=== PATIENT | female | born 1970 | race Caucasian/White ===

== ENCOUNTER 2021-02-09 15:19 | Emergency (ER) | payer OTHER, SELFPAY ==
--- NOTE | ~2021-02-09 | XR_ITS ---
EXAMINATION: XR ankle LT min 3V DATE: 02/09/2021 15:54 INDICATION: Left ankle lateral pain. TECHNIQUE: 3 views of left ankle were obtained. COMPARISON: None. FINDINGS: Bone alignment is normal. No fracture. There is sclerosis of the talar dome. Joint spaces a re normal. There are enthesophytes at the posterior and plantar aspects of calcaneal tuberosity. Ther e is ankle soft tissue swelling. IMPRESSION: 1. Sclerosis of the talar dome suspicious for osteonecrosis. Reviewed, dictated and finalized at location A.
[2021-02-09 15:29] VITALS: BP 150/78; PULSE 74; RESP 20; TEMP 36.5; O2SAT 98
--- NOTE | 2021-02-09 16:41 | ED.LOWEXIN ---
HPI - Extremity Injury (Lower) General Chief Complaint: Extremity Injury, Lower Stated Complaint: LEFT FOOT PAIN Source: patient and RN notes reviewed Mode of arrival: ambulatory History of Present Illness HPI Narrative: This is a 50-year-old female that presented to urgent care with complaints of left ankle and foot pain. According to patient she has gotten believe that her swelling is due to her gout. She also notes that when she walks she often twisted her ankle when she walks. She also noted to me that when she is in bed her lower extremity becomes extremely cold. Her x-ray indicates suspicious osteonecrosis. Patient is being transferred over to [facility] for further testing spoke with . Patient agrees to transfer over to [place] for further testing. Related Data Home Medications Medication Instructions Recorded Confirmed albuterol sulfate 90 mcg/actuation 2 puff INHALATION Q4-6H PRN gm 05/25/19 09/22/20 aerosol inhaler Allergies Allergy/AdvReac Type Severity Reaction Status Date / Time No Known Allergies Verified 06/12/19 14:02 Review of Systems Review of Systems: A 14 organ system Review of Systems was performed and pertinent positives included in the HPI, otherwise remaining ROS is negative. [facility] Past Medical History Medical History (Updated 02/09/21 @ 16:41 by ALEXIA Mclean) Anxiety Daytime sleepiness Hypertension Lower extremity surgery planned Right lower extremity surgery for infected tattoo and skin graft 2011 Obesity Family History Family History (System 06/12/19 @ 14:02 by Sonya Culp) Mother Patient's mother is in good health Family history of cardiovascular disease Father Patient's father is in good health Sibling Diabetes mellitus Sibling Type 1 diabetes Social History Social History (Updated 07/31/19 @ 10:59 by Karina Wade, [facility]) Smoking packs per day: 1 Smoking cigarettes per day: 20.0 Smoking status: Former smoker Tobacco type: cigarettes Second hand tobacco smoke exposure: No Smoking end date: 04/27/08 Alcohol intake: never Alcohol use details: Pt drinks rarely. Substance use: never Last use: 04/24/19 Exam Narrative: GENERAL: This is a well-nourished, well-developed patient, in no apparent distress. HEAD: normocephalic, atraumatic. EYES: PERRL. Sclera clear/white. Vision is grossly intact. EARS: External ears normal, auditory canals clear and without drainage, TMs normal without perforation. Hearing grossly intact. NOSE: External nose normal with no obvious nasal discharge, nares without redness, no rhinorrhea. THROAT: Mucous membranes moist, posterior pharynx clear. NECK: Neck supple, non-tender without lymphadenopathy, masses or thyromegaly. CARDIOVASCULAR: Regular rate and rhythm without murmurs, gallops, or rubs. RESPIRATORY: Clear to auscultation. Breath sounds equal bilaterally. No wheezes, rales, or rhonchi. GASTROINTESTINAL: Abdomen soft, non-tender, nondistended. Bowel sounds are active. No hepato-splenomegaly, or palpable masses. No guarding. SKIN: warm, intact with no suspicious lesions or rash, good texture and turgor. NEURO: awake, alert, and oriented to person, place and time. There were no obvious focal neurologic abnormalities. Steady gait EXTREMITIES: Left ankle and foot with edema and slight limited range of motion due to pain. Patient unable to bear weight due to pain BACK: Nontender without deformity or crepitance. No flank tenderness. Course Vital Signs Vital signs: Vital Signs Temperature 97.7 F 02/09/21 15:29 Pulse Rate 74 02/09/21 15:29 Respiratory Rate 20 02/09/21 15:29 Blood Pressure 150/78 H 02/09/21 15:29 Pulse Oximetry 98 02/09/21 15:29 Temperature 97.7 F 02/09/21 15:29 Pulse Rate 74 02/09/21 15:29 Respiratory Rate 20 02/09/21 15:29 Blood Pressure 150/78 H 02/09/21 15:29 Pulse Oximetry 98 02/09/21 15:29 Transfer Transf
== END 2021-02-09 16:46 | disposition short-term general hospital (02) ==
PROVIDERS: Emergency Provider Nurse Practitioner; PCP Internal Medicine
DX: M87.9 Osteonecrosis, unspecified (principal); M10.9 Gout, unspecified; Z87.891 Personal history of nicotine dependence; I10 Essential (primary) hypertension; E66.9 Obesity, unspecified; Z68.43 Body mass index [BMI] 50.0-59.9, adult
CPT/HCPCS: 73610; 99213; G0463

== ENCOUNTER 2021-02-09 17:03 | Observation (INO) | payer OTHER, SELFPAY ==
--- NOTE | ~2021-02-09 | CT_ITS ---
EXAMINATION: CT ankle LT wo con DATE: 02/09/2021 21:23 INDICATION: Left ankle pain and swelling. Radiographs suspicious for talar dome osteonecrosis. TECHNIQUE: Computed tomography (CT) of the left ankle was performed without intravenous contrast. Aut omated exposure control and iterative reconstruction technique were employed. The dose-length product was 314.19 mGy-cm. COMPARISON: Left ankle radiographs 02/09/2021 FINDINGS: Bone alignment is normal. No fracture. There is mild ankle joint osteoarthritis characteriz ed by 4 mm subchondral cyst in the medial talar dome, talar subchondral sclerosis, and tiny osteophyt es. There is mild osteoarthritis of the subtalar joint and second-fourth tarsometatarsal joints. Ther e are enthesophytes at the posterior and plantar aspects of calcaneal tuberosity. There is an ankle j oint effusion. There is subcutaneous edema about the ankle. IMPRESSION: 1. Polyarticular osteoarthritis. 2. No talar dome osteonecrosis. 3. Small ankle joint effusion. Reviewed, dictated and finalized at location A.
[2021-02-09 17:25] VITALS: BP 156/79; PULSE 73; RESP 16; TEMP 36.5; O2SAT 100
[2021-02-09 17:26] LABS: Basophils Percent Auto 0.2 % (0.2-1.2); Eosinophils Absolute Auto 0.2 K/mm3 (0-0.3); Eosinophils Percent Auto 2.1 % (0-4.4); Hematocrit 37.4 % (37.0-47.0); Hemoglobin 11.1 g/dL (12.0-15.0); Immature Granulocyte Absolute 0.04 K/mm3 (0.00-0.031); Immature Granulocyte Percent A 0.3 % (0-0.5); Lymphocytes Absolute Auto 1.69 K/mm3 (0.9-3.2); Lymphocytes Percent Auto 14.7 % (18.3-44.2); Mean Corpuscular HGB Conc 29.7 g/dl (32-36); Mean Corpuscular Hemoglobin 22.8 pg (26-34); Mean Corpuscular Volume 76.8 fl (80-100); Mean Platelet Volume 9.8 fl (7.4-10.4); Monocytes Absolute Auto 0.5 K/mm3 (0.1-0.6); Monocytes Percent Auto 4.1 % (2.6-8.5); Neutrophils Absolute Auto 9.1 K/mm3 (1.3-6.7); Neutrophils Percent Auto 78.6 % (45.5-73.1); Platelet Count Result 359 k/mm3 (150-375); Red Blood Count 4.87 M/mm3 (4.2-5.4); Red Cell Distribution Width 16.4 % (11.5-14.5); White Blood Count 11.5 K/mm3 (4.5-10.0)
[2021-02-09 17:36] LABS: Anion Gap 10 mmol/L (8-16); Blood Urea Nitrogen 19 mg/dL (7-17); Calcium 9.5 mg/dL (8.4-10.2); Carbon Dioxide 25 mmol/L (22-30); Chloride 105 mmol/L (98-107); Estimated CRCL calculation 77 ml/min; Estimated Glomerular Filt Rate 59; Glucose 92 mg/dL (65-110); Potassium 3.9 mmol/L (3.4-5.0); Sodium 140 mmol/L (137-145)
[2021-02-09 17:37] LABS: Hypochromasia 1+ (NORMAL); Platelet Estimate Adequate (Adequate)
[2021-02-09 17:38] LABS: Ovalocytes 1+ (NORMAL)
[2021-02-09 17:39] LABS: CRP 4.6 mg/dL (<1.0)
[2021-02-09 18:08] LABS: Erythrocyte Sedimentation Rate 47 mm/hr (0-20)
--- NOTE | 2021-02-09 19:11 | ED.EXTPRO ---
HPI - Extremity Problem General Chief complaint: Extremity Problem,Nontraumatic Stated complaint: painful. swollen lt ankle Time Seen by Provider: 02/09/21 17:37 Source: patient and family Mode of arrival: ambulatory Limitations: no limitations History of Present Illness HPI Narrative: Patient is a 50-year-old female with a history of gout, psoriasis who presents for evaluation left foot pain. Patient states the left foot has been acutely tender over the past 24 hours. She states that she has a history of gout attacks, is usually prescribed steroids by her primary care physician. She does not follow with a hat sizer. Patient denies any redness over the left foot, but does report swelling and inability to ambulate secondary to pain. No recent cuts, falls, or injury. Patient denies any fever, chills, nausea or vomiting. She states that pain is exacerbated with any weightbearing activity. Patient states the pain initially began 3 weeks ago, states that it resolved with watchful waiting but has recurred over the past 24 hours. Patient was seen at an outside urgent care which had a x-ray notable for osteonecrosis and was sent to this facility for further work up. Related Data Home Medications Medication Instructions Recorded Confirmed albuterol sulfate 90 mcg/actuation 2 puff INHALATION Q4-6H PRN gm 05/25/19 09/22/20 aerosol inhaler Allergies Allergy/AdvReac Type Severity Reaction Status Date / Time No Known Allergies Verified 06/12/19 14:02 Review of Systems Review of Systems: CONSTITUTIONAL: Denies fever, chills, or sweats. EYES: Denies visual changes, redness, or discharge. ENT: Denies rhinorrhea, congestion, sore throat, or otalgia. CARDIOVASCULAR: Denies chest pain, palpitations, or edema. RESPIRATORY: Denies cough or dyspnea. GASTROINTESTINAL: Denies abdominal pain, nausea, vomiting, or diarrhea. GENITOURINARY: Denies dysuria or hematuria. SKIN: Denies rash or itching. MUSCULOSKELETAL: Denies back pain, reports left ankle and foot pain, reports foot swelling NEUROLOGIC: Denies headache, numbness, or weakness. [facility] Past Medical History Medical History (Updated 02/09/21 @ 22:03 by Ros Cadena MD) Abscess Acute bronchitis Anxiety Asthma Daytime sleepiness Foot pain Gout Hypertension Lower extremity surgery planned Right lower extremity surgery for infected tattoo and skin graft 2011 Obesity Osteonecrosis Otalgia of both ears Screening for lipid disorders Family History Family History Mother Patient's mother is in good health Family history of cardiovascular disease Father Patient's father is in good health Sibling Diabetes mellitus Sibling Type 1 diabetes Social History Social History Smoking packs per day: 1 Smoking cigarettes per day: 20.0 Smoking status: Former smoker Tobacco type: cigarettes Second hand tobacco smoke exposure: No Smoking end date: 04/27/08 Alcohol intake: never Alcohol use details: Pt drinks rarely. Substance use: never Last use: 04/24/19 Gender identity (if verbalized by the patient): Female Exam Narrative: GENERAL: Awake, alert, conversant HEAD: Normocephalic, atraumatic. EYES: PERRLA and EOMI. ENT: Nares clear, no rhinorrhea or epistaxis. Mucous membranes moist. NECK: Supple. CHEST: No respiratory distress, breathing even and non labored HEART: Regular rate, sinus rhythm ABDOMEN:Non distended, non tender EXTREMITIES: Decreased range of motion in the left foot and ankle secondary to pain. Edema present. No ecchymoses. DP pulse 2+. No erythema. + lateral and medial malleolar tenderness to palpation. No gross deformity. SKIN: Warm, dry, no rash. NEURO:No focal deficits. Alert and oriented x3 Course Vital Signs Vital signs: Vital Signs Temperature 36.5 C 02/09/21 17:25 Pulse Rate 73 02/09/21 17:25 Respiratory
[2021-02-09 20:21] LABS: Uric Acid 9.1 mg/dL (2.5-7.5)
[2021-02-09 20:27] VITALS: BP 148/64; TEMP 36.4; O2SAT 100
[2021-02-09] MEDS: oxyCODONE/ACETAMINOPHEN (*CRX) 5-325 MG TABLET 1 TABLET PO (21:03)
[2021-02-09] MEDS: LIDO 1%/EPINEPHRINE 1:100,000 20 ML VIAL 10 ML INFILTRATE (21:04)
[2021-02-09 22:39] LABS: Color Synovial Fluid Red (Colorless); Source Synovial Fluid Synovial fluid
[2021-02-09 22:40] LABS: Appearance Synovial Fluid Bloody (Clear)
[2021-02-09 22:41] LABS: Lymphocytes Synovial Fluid 3 %; Monocytes Synovial Fluid 1 %; Neutrophils Synovial Fluid 96 % (0-25)
[2021-02-09 22:54] VITALS: BP 149/66; PULSE 79; RESP 20; O2SAT 98
--- NOTE | 2021-02-09 23:44 | ADMGEN ---
This patient, Erin Davis, was admitted to [facility] S[facility] Room 302-01. Patient/family oriented to hospital policies and general routines including ID bracelet, bed and alarms, visiting hours, pain management, procedures, bathroom and other care routines, personal items, smoking policy, room service/diet, and visiting hours. Information on how to activate the Rapid Response Team has been discussed. Patient/Family are encouraged to report perceived risks to care and to ask questions if they do not understand what they are told or what they should do.
[2021-02-10] VITALS: BP 152/59; PULSE 83; RESP 18; TEMP 36.6; O2SAT 98; BMI 50.2
--- NOTE | 2021-02-10 02:27 | PM.IMHP ---
H&P: HPI History of Present Illness Date/Time: 02/10/21 02:27 Chief Complaint: left ankle swelling Narrative: This is a 50-year-old female with past medical history significant for obesity, asthma, pseudogout.Patient is states that she has had prior or swelling and pain of the ankle the left side that her primary care physician has given her steroids and has gone away. This time around in has lasted more than usual with significant worse swelling locally and difficulty bearing weight on it and walking. she denies any fevers any rigors any chills no nausea no vomiting no abdominal pain no diarrhea no local trauma. Patient had gone to an urgent care facility where she was seen and sent over to emergency room. Preliminary workup was significant for a CT of the ankle with no acute fracture but significant for local arthritis and degenerative joint disease. Patient had arthrocentesis performed in the emergency room and fluid has been submitted for analysis. Orthopedic surgeons have been consulted. Review of Systems Review of Systems: LEFT ANKLE SWELLING AND PAIN WITH ACTIVITY LASTING FOR ABOUT A MONTH Constitutional: Constitutional: Denies chills, Denies fever(s), Denies malaise and Denies weakness Eyes: Eyes: Denies change in vision ENT: Denies dysphagia, Denies dizziness, Denies nasal congestion, Denies nasal discharge, Denies nasal obstruction and Denies odynophagia Cardiovascular: Cardiovascular: Denies chest pain, Denies irregular heart rhythm, Denies radiating jaw, neck or arm pain, Denies palpitations and Denies dyspnea on exertion Respiratory: Respiratory: Denies cough, Denies dyspnea and Denies wheezing Gastrointestinal: Gastrointestinal: Denies diarrhea, Denies nausea and Denies vomiting Genitourinary: Genitourinary: Reports no additional female genitourinary complaints Musculoskeletal: Musculoskeletal: Reports joint swelling ( LEFT ANKLE) Integumentary/Breasts: Skin/Breast: Reports system reviewed and no additional complaints, except as docu Neurologic: Reports system reviewed and no additional complaints, except as documented Psychiatric: Psychiatric: Reports no additional psychiatric complaints Endocrine: Endocrine: Reports no additional endocrine complaints Hematologic/Lymphatic: Hematologic/Lymphatic: Reports no additional hematologic/lymphatic complaints Allergic/Immunologic: Allergic/Immunologic: Reports no additional allergic/immunologic complaints PMFSH Past Medical History Medical History (Updated 02/10/21 @ 00:01 by Background Daemon) Abscess Acute bronchitis Anxiety Asthma Daytime sleepiness Foot pain Gout Hypertension Lower extremity surgery planned Right lower extremity surgery for infected tattoo and skin graft 2012 Obesity Osteonecrosis Otalgia of both ears Screening for lipid disorders Family History Family History Mother Patient's mother is in good health Family history of cardiovascular disease Father Patient's father is in good health Sibling Diabetes mellitus Sibling Type 1 diabetes Social History Social History Smoking packs per day: 1 Smoking cigarettes per day: 20.0 Smoking status: Never smoker Tobacco type: cigarettes Second hand tobacco smoke exposure: No Smoking end date: 04/27/08 Alcohol intake: never Alcohol use details: Pt drinks rarely. Substance use: current Substance use type: marijuana Other substance usage details: marijuana for sleep Last use: 04/24/19 Gender identity (if verbalized by the patient): Female Spiritual care concerns: No Meds Home Medications and Allergies Home Medications Medication Instructions Recorded Confirmed Type albuterol sulfate 90 mcg/actuation 2 puff INHALATION Q4-6H PRN 05/25/19 02/09/21 History aerosol inhaler fluticasone propionate 50 1 spray NASAL DAILY PRN #18.2 ml 1
[2021-02-10 06:00] VITALS: BP 162/63; PULSE 90; RESP 18; TEMP 36.1; O2SAT 95
[2021-02-10 06:15] LABS: Basophils Percent Auto 0.1 % (0.2-1.2); Eosinophils Absolute Auto 0.2 K/mm3 (0-0.3); Hematocrit 32.6 % (37.0-47.0); Hemoglobin 9.9 g/dL (12.0-15.0); Immature Granulocyte Absolute 0.02 K/mm3 (0.00-0.031); Immature Granulocyte Percent A 0.3 % (0-0.5); Lymphocytes Absolute Auto 1.49 K/mm3 (0.9-3.2); Lymphocytes Percent Auto 19.7 % (18.3-44.2); Mean Corpuscular HGB Conc 30.4 g/dl (32-36); Mean Corpuscular Hemoglobin 23.1 pg (26-34); Mean Corpuscular Volume 76.2 fl (80-100); Mean Platelet Volume 9.9 fl (7.4-10.4); Monocytes Absolute Auto 0.4 K/mm3 (0.1-0.6); Monocytes Percent Auto 5.3 % (2.6-8.5); Neutrophils Absolute Auto 5.4 K/mm3 (1.3-6.7); Neutrophils Percent Auto 71.6 % (45.5-73.1); Platelet Count Result 312 k/mm3 (150-375); Red Blood Count 4.28 M/mm3 (4.2-5.4); Red Cell Distribution Width 16.5 % (11.5-14.5); White Blood Count 7.6 K/mm3 (4.5-10.0)
[2021-02-10] MEDS: HYDROcodone/acetaminophen (*CRX) 5-325 MG TABLET 1 TAB PO ×2 (07:30→11:29)
[2021-02-10 07:47] LABS: CRP 5.9 mg/dL (<1.0)
[2021-02-10] MEDS: NAPROXEN 500 MG TABLET PO ×2 (08:46→17:16)
[2021-02-10] MEDS: SERTRALINE HCL 50 MG TABLET PO (08:46)
[2021-02-10] MEDS: FLUTICASONE/SALMETEROL 45-21 MCG INHALER 1 PUFF 2 PUFF INHALATION ×2 (11:28→21:47)
--- NOTE | 2021-02-10 13:15 | PM.CNOR ---
Assessment and Plan Additional Plan 50 yo with hx of Gout. Uric acid elevated on admission. Hx of ankle involvement. Aspirate was bloody and only 2cc. Not convinced this was synovial fluid. Gram stain neg for organisms. Cults pending crystals neg. Clinically this is most c/w Gout. Infection is still possible. Would rx for gout and see response to treatment. We can monitor for next 24 hours. if she responds well to treatment and does not worsen as one would expect with infection I would feel comfortable d/c'ing with a gout diagnosis presumptive. If she clinically worsens I will try to aspirate the ankle for a better sample and treat accordingly. History of Present Illness HPI Consult date: 02/10/21 Chief complaint: Osteonecrosis, left ankle PMFSH Past Medical History Medical History (Updated 02/10/21 @ 00:01 by Jerica Gray) Abscess Acute bronchitis Anxiety Asthma Daytime sleepiness Foot pain Gout Hypertension Lower extremity surgery planned Right lower extremity surgery for infected tattoo and skin graft 2011 Obesity Osteonecrosis Otalgia of both ears Screening for lipid disorders Family History Family History Mother Patient's mother is in good health Family history of cardiovascular disease Father Patient's father is in good health Sibling Diabetes mellitus Sibling Type 1 diabetes Social History Social History Smoking packs per day: 1 Smoking cigarettes per day: 20.0 Smoking status: Never smoker Tobacco type: cigarettes Second hand tobacco smoke exposure: No Smoking end date: 04/27/08 Alcohol intake: never Alcohol use details: Pt drinks rarely. Substance use: current Substance use type: marijuana Other substance usage details: marijuana for sleep Last use: 04/24/19 Gender identity (if verbalized by the patient): Female Spiritual care concerns: No Meds Home Medications and Allergies Home Medications Medication Instructions Recorded Confirmed Type albuterol sulfate 90 mcg/actuation 2 puff INHALATION Q4-6H PRN gm 05/25/19 02/09/21 History aerosol inhaler fluticasone propionate 50 1 spray NASAL DAILY PRN #18.2 ml 04/25/20 02/09/21 Rx mcg/actuation nasal spray,suspension sertraline 50 mg tablet 50 mg PO DAILY #90 tablet 04/25/20 02/09/21 Rx fluticasone 100 mcg-salmeterol 50 1 inh INHALATION BID #60 ea 08/12/20 02/09/21 Rx mcg/dose blistr powdr for inhalation Allergies Allergy/AdvReac Type Severity Reaction Status Date / Time No Known Allergies Verified 06/12/19 14:02 Vital Signs Vital Signs - 24 hr 02/09/21 17:25 02/09/21 20:27 02/09/21 22:54 Temperature 36.5 C 36.4 C Pulse Rate 73 79 Respiratory Rate 16 20 Blood Pressure 156/79 H 148/64 H 149/66 H Pulse Oximetry 100 100 98 02/10/21 00:00 02/10/21 06:00 Temperature 36.6 C 36.1 C L Pulse Rate 83 90 Respiratory Rate 18 18 Blood Pressure 152/59 H 162/63 H Pulse Oximetry 98 95 Exam Narrative: 50 yo f with hx of Gout affecting ankles in the past. Months ago right ankle and about 3 weeks ago left ankle which never completely resolved. Admitted with left ankle pain. An aspirate of 2 cc bloody fluid was sent to lab. WBCs but no organisms seen. Crystals neg. Extrem: Other: ROM with flex 45 and ext to 20 with min pain. No warmth or redness. min pain to palp. No palp effusion. no ascending lympangitis. NV intact distally Results Labs Result Diagrams: 02/10/21 05:34 02/09/21 17:18 Labs: Abnormal lab results 02/09/21 02/09/21 02/09/21 Range/Units 17:16 17:17 17:17 WBC 11.5 H (4.5-10.0) K/mm3 Hgb 11.1 L (12.0-15.0) g/dL Hct (37.0-47.0) % MCV 76.8 L (80-100) fl MCH 22.8 L (26-34) pg MCHC 29.7 L (32-36) g/dl RDW 16.4 H (11.5-14.5) % Neut % (Auto) 78.6 H (45.5-73.1) % Lymph % (Auto) 1
[2021-02-10] MEDS: diphenhydrAMINE HCl CAP 25 MG CAPSULE PO ×2 (13:51→20:27)
[2021-02-10 14:00] VITALS: BP 132/45; PULSE 80; RESP 14; TEMP 36.4; O2SAT 96
--- NOTE | 2021-02-10 15:28 | PM.IMPN ---
Progress Note: A&P Assessment and Plan (1) Ankle effusion: Qualifiers: Laterality: left Qualified Code(s): M25.472 - Effusion, left ankle Code(s): M25.473 - Effusion, unspecified ankle Status: Acute Assessment and Plan: likely due to gout as her uric acid is elevated and she has had this issue before and she is improving with current treatment - her synovial fluid is limited but does not show any crystals or organisms - infection seems less likely since she has not had a fever, no erythema to the joint, and her white blood cell count is normal but will monitor cultures - continue naproxen and add steroids to see if this helps her pain - plan to keep her overnight and if she has improved she can be discharged tomorrow. If she worsens, she may need further intervention or antibiotic treatment - she will need to follow-up with her primary care physician for the addition allopurinol to help prevent gout flares. I also have added information about low purine diet for discharge (2) Asthma: Qualifiers: Asthma severity: unspecified severity Asthma persistence: unspecified Asthma complication type: unspecified Qualified Code(s): J45.909 - Unspecified asthma, uncomplicated Code(s): J45.909 - Unspecified asthma, uncomplicated Status: Acute Assessment and Plan: stable, no acute issues (3) Gout: Qualifiers: Chronicity: acute Gout etiology: unspecified cause Gout site: foot Laterality: left Qualified Code(s): M10.9 - Gout, unspecified Code(s): M10.9 - Gout, unspecified Status: Acute Assessment and Plan: as above (4) Elevated blood pressure reading without diagnosis of hypertension: Code(s): R03.0 - Elevated blood-pressure reading, without diagnosis of hypertension Status: Acute Assessment and Plan: last blood pressure 132/45 but was elevated more significantly on admission. Could be due to pain. Would suggest following up with her primary care physician and if it continues to be high, may consider outpatient treatment. Time Spent With Patient Time with patient: 25 - 35 minutes Subjective Date/time seen: 02/10/21 15:28 Interval history: Pt is a 50-year-old female here for left ankle pain. Patient states she continues to have some pain but is much better since she has been here. She is able to walk on it and has good range of motion but does still feel pain. she has no numbness or tingling to the area or erythema. She says she has had gout in the past but is not on any medications for this. I had a long talk to her about treating acute gout flare and then changing her diet and possibly getting on allopurinol to help prevent gout flares. She denies any fevers or chills at this time. No chest pain or shortness of breath Review of Systems Review of Systems: All systems reviewed & are unremarkable except as noted in HPI and below Exam Narrative: General: Well developed well nourished patient in NAD HEENT: normocephalic Neck: supple Neuro: Alert and oriented x4 CV:RRR Resp:CTA Abd: Soft, non distended. No pain to palpation. Positive bowel sounds Extremities: left ankle without erythema with very slight swelling. Good range of movement but does elicit pain. No significant pain to joint palpation. She has a small psoriasis patch on her foot that is unchanged. Pulses and sensation intact Objective Data Vital Signs Vital Signs: Vital Signs - 24 hr 02/09/21 17:25 02/09/21 20:27 02/09/21 22:54 Temperature 97.7 F 97.6 F Pulse Rate 73 79 Respiratory Rate 16 20 Blood Pressure 156/79 H 148/64 H 149/66 H Pulse Oximetry 100 100 98 02/10/21 00:00 02/10/21 06:00 02/10/21 14:00 Temperature 97.9 F 96.9 F L 97.5 F L Pulse Rate 83 90 80 Respiratory Rate 18 18 14 Blood Pressure 152/59 H 162/63 H 132/45 L Pulse Oximetry 98 95 96 Intake/Output Intake/Output: Intake & Output 08
[2021-02-10] MEDS: methylPREDNISolone SOD SUCC 40 MG VIAL IV PUSH (15:38)
[2021-02-10 21:48] VITALS: BP 164/67; PULSE 91; RESP 18; TEMP 36.4; O2SAT 98
[2021-02-11 05:49] VITALS: BP 148/71; PULSE 89; RESP 18; TEMP 36.2; O2SAT 96
[2021-02-11 06:37] LABS: Basophils Percent Auto 0.2 % (0.2-1.2); Hematocrit 35.2 % (37.0-47.0); Hemoglobin 10.4 g/dL (12.0-15.0); Immature Granulocyte Absolute 0.09 K/mm3 (0.00-0.031); Immature Granulocyte Percent A 0.7 % (0-0.5); Lymphocytes Absolute Auto 0.85 K/mm3 (0.9-3.2); Lymphocytes Percent Auto 6.8 % (18.3-44.2); Mean Corpuscular HGB Conc 29.5 g/dl (32-36); Mean Corpuscular Hemoglobin 22.6 pg (26-34); Mean Corpuscular Volume 76.4 fl (80-100); Monocytes Absolute Auto 0.3 K/mm3 (0.1-0.6); Neutrophils Absolute Auto 11.3 K/mm3 (1.3-6.7); Neutrophils Percent Auto 90.3 % (45.5-73.1); Platelet Count Result 373 k/mm3 (150-375); Red Blood Count 4.61 M/mm3 (4.2-5.4); Red Cell Distribution Width 16.3 % (11.5-14.5); White Blood Count 12.5 K/mm3 (4.5-10.0)
[2021-02-11 06:50] LABS: Alanine Aminotransferase 17 U/L (4-35); Albumin Level 3.6 g/dL (3.5-5.1); Alkaline Phosphatase 92 U/L (38-126); Anion Gap 8 mmol/L (8-16); Aspartate Amino Transferase 21 U/L (14-36); Bilirubin,Total 0.3 mg/dL (0.2-1.3); Blood Urea Nitrogen 15 mg/dL (7-17); Calcium 8.9 mg/dL (8.4-10.2); Carbon Dioxide 22 mmol/L (22-30); Chloride 109 mmol/L (98-107); Estimated CRCL calculation 104 ml/min; Estimated Glomerular Filt Rate > 60; Glucose 128 mg/dL (65-110); Potassium 4.3 mmol/L (3.4-5.0); Sodium 139 mmol/L (137-145)
[2021-02-11] MEDS: SERTRALINE HCL 50 MG TABLET PO (09:18)
[2021-02-11] MEDS: predniSONE 20 MG TABLET 40 MG PO (09:18)
[2021-02-11] MEDS: NAPROXEN 500 MG TABLET PO (09:18)
[2021-02-11] MEDS: FLUTICASONE/SALMETEROL 45-21 MCG INHALER 1 PUFF 2 PUFF INHALATION (09:45)
--- NOTE | 2021-02-11 15:00 | PM.DS ---
DS: Admitting Diagnosis Admitting Diagnosis gout flare DS: Discharge Diagnosis Discharge Diagnosis (1) Ankle effusion: Qualifiers: Laterality: left Qualified Code(s): M25.472 - Effusion, left ankle Code(s): M25.473 - Effusion, unspecified ankle Status: Acute Assessment and Plan: likely due to gout as her uric acid is elevated and she has had this issue before and she is improving with current treatment - her synovial fluid is limited but does not show any crystals or organisms - infection seems less likely since she has not had a fever, no erythema to the joint, and her white blood cell count is normal -The aspirate was not sent for cx but gram stain showed no organism and pts symptoms almost resolved on day of d/c. infection seems less likely. She will follow up with ortho next week for monitoring. - Naproxen and steroids provided at discharge - she will need to follow-up with her primary care physician for the addition allopurinol to help prevent gout flares. I also have added information about low purine diet for discharge (2) Asthma: Qualifiers: Asthma severity: unspecified severity Asthma persistence: unspecified Asthma complication type: unspecified Qualified Code(s): J45.909 - Unspecified asthma, uncomplicated Code(s): J45.909 - Unspecified asthma, uncomplicated Status: Acute Assessment and Plan: stable, no acute issues (3) Gout: Qualifiers: Chronicity: acute Gout etiology: unspecified cause Gout site: foot Laterality: left Qualified Code(s): M10.9 - Gout, unspecified Code(s): M10.9 - Gout, unspecified Status: Acute Assessment and Plan: as above (4) Elevated blood pressure reading without diagnosis of hypertension: Code(s): R03.0 - Elevated blood-pressure reading, without diagnosis of hypertension Status: Acute Assessment and Plan: last blood pressure 148/71 but was elevated more significantly on admission. Could be due to pain. Would suggest following up with her primary care physician and if it continues to be high, may consider outpatient treatment. DS: Summary Hospital Course Hospital Course: DOS 02/11/21 Patient is a 50-year-old female with a past medical history of gout and psoriasis who presented emergency room for left ankle pain. vitals in the ER were temperature 36.5 degree C, pulse 73, respiratory rate 16, blood pressure 156/79, pulse ox 100 on room air. Initial white blood cell count 11.5, hemoglobin 11.1, hematocrit 37.4, platelets 359. BMP within normal limits. Ankle CT showed polyarticular osteoarthritis, no pallor dome osteonecrosis, small ankle joint effusion. A joint aspiration was done by the ER doctor and sent for Gram stain which showed white blood cells but no organisms or crystals. She was seen by orthopedist who suspected gout although there was no crystals. She was started on naproxen and given steroids and this improved the patient's pain immensely. The day of discharge she felt mild pain but was able to walk on it and had full range of motion. There was no erythema or pain to palpation. I suspect this was a gout flare and she was discharged on naproxen and Medrol Dosepak and is going to follow up with ortho next week to ensure that is improving. She is also to follow-up with her primary care physician after this acute phase to see if she would benefit from allopurinol. She also needs to see security solutions engineer for her psoriasis. Overall, the patient was feeling much better and ready to go. She was educated about the worrisome signs and symptoms come back to emergency room for and was discharged stable condition. Time Spent with Patient Time attestation: Total time spent providing and/or coordinating discharge services: Exam Narrative: General: Well developed well nourished patient in NAD HEENT: normocephalic Neck: supple Neuro: Alert and oriented x4
== END 2021-02-11 12:55 | disposition home or self-care (01) ==
LOC: ANHED 22:03 → ANH3MEDSUR 23:19
PROVIDERS: Nurse Practitioner Adult Health; Physician Assistant; Admitting Provider Internal Medicine; Emergency Provider Emergency Medicine; PCP Internal Medicine; Visit Provider Student in an Organized Health Care Education/Training Program
DX: M25.472 Effusion, left ankle (principal); J45.909 Unspecified asthma, uncomplicated; M10.9 Gout, unspecified; R03.0 Elevated blood-pressure reading, without diagnosis of hypertension; M25.572 Pain in left ankle and joints of left foot; M15.9 Polyosteoarthritis, unspecified; L40.9 Psoriasis, unspecified; M87.9 Osteonecrosis, unspecified; F41.9 Anxiety disorder, unspecified; H92.03 Otalgia, bilateral; E66.9 Obesity, unspecified; F12.90 Cannabis use, unspecified, uncomplicated; Z68.43 Body mass index [BMI] 50.0-59.9, adult; Z87.891 Personal history of nicotine dependence; Z79.899 Other long term (current) drug therapy; Z79.52 Long term (current) use of systemic steroids
CPT/HCPCS: 20610; 36415; 73610; 73700; 80048; 80053; 84550; 85025; 85652; 86140; 87040; 88108; 89051; 89060; 94640; 96374; 99285; A9270; G0378; J2920; J7512

== ENCOUNTER → 2021-05-19 03:34 | Outpatient (CLI) | payer OTHER, SELFPAY ==
[2021-05-19 18:10] LABS: SARS-CoV-2 RNA PCR Negative
== END ==
PROVIDERS: PCP Internal Medicine; Visit Provider Internal Medicine Gastroenterology
DX: Z01.812 Encounter for preprocedural laboratory examination (principal); Z20.822 Contact with and (suspected) exposure to COVID-19
CPT/HCPCS: C9803; U0003; U0005

== ENCOUNTER 2021-05-22 00:40 | Day surgery (SDC) | payer OTHER, SELFPAY ==
[2021-05-09 13:26] VITALS: BMI 49.6
--- NOTE | 2021-05-22 08:17 | P.PNAN_ITS ---
Anes - Initial Pre Proc Eval Procedure: Operation Date: 05/22/21 09:45 Proposed Procedures p Colonoscopy - Camilo Patel MD Date/Time: 05/22/21 08:17 Surgeon: Camilo Patel MD Pre Op Diagnosis: anemia Patient Data Age: 50 Gender: F Height: 1.57 m Weight: 123 kg Allergies Allergy/AdvReac Type Severity Reaction Status Date / Time No Known Allergies Verified 05/22/21 08:32 Home Medications Medication Instructions Recorded Confirmed Type fluticasone propionate 50 1 spray NASAL DAILY PRN #18.2 ml 04/25/20 05/22/21 Rx mcg/actuation nasal spray,suspension allopurinol 100 mg tablet 100 mg PO DAILY #90 tablet 03/14/21 05/22/21 Rx albuterol sulfate 90 mcg/actuation 2 inh INHALATION Q4-6H PRN #18 g 04/17/21 05/22/21 Rx aerosol inhaler fluticasone 100 mcg-salmeterol 50 1 inh INHALATION BID #60 ea 04/17/21 05/22/21 Rx mcg/dose blistr powdr for inhalation sertraline 50 mg tablet 50 mg PO DAILY #90 tablet 04/17/21 05/22/21 Rx cetirizine 30 mg PO DAILY 05/09/21 05/22/21 History Patient hx anesthesia problems: none Family hx anesthesia problems: none Results Review: All pre-operative results and documents have been reviewed as part of the pre-operative evaluation. [facility] Past Medical History Medical History (Updated 05/22/21 @ 08:18 by Lloyd Durand MD) Abscess Acute bronchitis Anxiety Asthma Daytime sleepiness Foot pain Gout Hypertension Lower extremity surgery planned Right lower extremity surgery for infected tattoo and skin graft 2011 Morbid obesity due to excess calories Obesity Osteonecrosis Otalgia of both ears Polyarthritis Screening for lipid disorders Family History Family History (Updated 02/20/21 @ 11:02 by Karina Wade CMA) Mother Family history of cardiovascular disease Thyroid disease Father Patient's father is in good health Sibling Diabetes mellitus Sibling Type 1 diabetes Kelly's disease Social History Social History Smoking packs per day: 1 Smoking cigarettes per day: 20.0 Smoking status: Never smoker Tobacco type: cigarettes Second hand tobacco smoke exposure: No Smoking end date: 04/27/08 Alcohol intake: never Alcohol use details: Pt drinks rarely. Substance use: current Substance use type: marijuana Other substance usage details: marijuana for sleep Last use: 04/24/19 Living arrangements: with family Gender identity (if verbalized by the patient): Female Spiritual care concerns: No Anes - Eval Final PreProcedure Day of Procedure 05/22/21 08:17 Patient weight: morbidly obese Heart: regular rate and rhythm Lungs: clear to auscultation and normal air movement Airway: Mallampati scale class II Neurological: alert and oriented Last oral intake: >/= 8 hours ASA classification: III Emergent: no Anesthetic plan: proceed Anesthesia type and monitoring: general GIVS Results Review: All pre-operative results and documents have been reviewed as part of the pre-operative evaluation. Informed Consent: The patient's anesthetic plan and its attendant risks and benefits were discussed with the patient/family/POA. Questions were solicited a nd answers provided to the satisfaction
[2021-05-22 08:33] VITALS: BP 152/82; PULSE 83; RESP 18; TEMP 35.3; O2SAT 98
[2021-05-22] MEDS: LACTATED RINGERS 1,000 ML 150 ML IV CONT (08:43)
--- NOTE | 2021-05-22 09:18 | PM.HPGS ---
History of Present Illness History of Present Illness Consent: Risks, benefits, and alternatives have been discussed and questions answered. Patient agrees to proceed with procedure. Chief complaint: anemia Narrative: Erin Davis is a 50 year old female here for first screening colonoscopy. Also has VENANCIO but no overt gib Review of Systems Constitutional: Constitutional: Denies headache(s) and Denies weakness Eyes: Eyes: Denies blurry vision ENT: Reports Normal hearing present, Denies headache(s) and Denies neck pain Cardiovascular: Cardiovascular: Denies chest pain and Denies dyspnea Respiratory: Respiratory: Denies dyspnea Gastrointestinal: Gastrointestinal: Reports no additional gastrointestinal complaints Genitourinary: Genitourinary: Denies dysuria Musculoskeletal: Musculoskeletal: Denies neck pain Integumentary/Breasts: Skin/Breast: Denies dry skin Neurologic: Reports Normal hearing present, Denies headache(s) and Denies weakness Psychiatric: Psychiatric: Denies anxiety Endocrine: Endocrine: Denies change in body appearance Hematologic/Lymphatic: Hematologic/Lymphatic: Denies easy bleeding Allergic/Immunologic: Allergic/Immunologic: Denies urticaria PMFSH Past Medical History Medical History (Updated 05/22/21 @ 08:18 by Lloyd Durand MD) Abscess Acute bronchitis Anxiety Asthma Daytime sleepiness Foot pain Gout Hypertension Lower extremity surgery planned Right lower extremity surgery for infected tattoo and skin graft 2011 Morbid obesity due to excess calories Obesity Osteonecrosis Otalgia of both ears Polyarthritis Screening for lipid disorders Family History Family History (Updated 02/20/21 @ 11:02 by Karina Wade CMA) Mother Family history of cardiovascular disease Thyroid disease Father Patient's father is in good health Sibling Diabetes mellitus Sibling Type 1 diabetes Kelly's disease Social History Social History Smoking packs per day: 1 Smoking cigarettes per day: 20.0 Smoking status: Never smoker Tobacco type: cigarettes Second hand tobacco smoke exposure: No Smoking end date: 04/27/08 Alcohol intake: never Alcohol use details: Pt drinks rarely. Substance use: current Substance use type: marijuana Other substance usage details: marijuana for sleep Last use: 04/24/19 Living arrangements: with family Gender identity (if verbalized by the patient): Female Spiritual care concerns: No Meds Home Medications and Allergies Home Medications Medication Instructions Recorded Confirmed Type fluticasone propionate 50 1 spray NASAL DAILY PRN #18.2 ml 04/25/20 05/22/21 Rx mcg/actuation nasal spray,suspension allopurinol 100 mg tablet 100 mg PO DAILY #90 tablet 03/14/21 05/22/21 Rx albuterol sulfate 90 mcg/actuation 2 inh INHALATION Q4-6H PRN #18 g 04/17/21 05/22/21 Rx aerosol inhaler fluticasone 100 mcg-salmeterol 50 1 inh INHALATION BID #60 ea 04/17/21 05/22/21 Rx mcg/dose blistr powdr for inhalation sertraline 50 mg tablet 50 mg PO DAILY #90 tablet 04/17/21 05/22/21 Rx cetirizine 30 mg PO DAILY 05/09/21 05/22/21 History Allergies Allergy/AdvReac Type Severity Reaction Status Date / Time No Known Allergies Verified 05/22/21 08:32 Vital Signs Vital Signs - 24 hr 05/22/21 08:33 Temperature 95.5 F L Pulse Rate 83 Respiratory Rate 18 Blood Pressure 152/82 H Pulse Oximetry 98 Exam Const: General: comfortable and no acute distress HENMT: General nose exam: Normal nares present Eyes: General: appearance normal, both eyes and all related structures Neck: Neck: no JVD Resp: Auscultation: clear to auscultation bilaterally Cardio: Rate: regular rate Rhythm: regular rhythm GI: Inspection: non-distended GI Palp: Yes Soft to palpation Skin: General skin exam: normal color Neuro: General: gait normal Speech: no
[2021-05-22 09:27] LABS: Beta HCG Quantitative < 2.39 mIU/ML
[2021-05-22 09:51] VITALS: BP 104/51; PULSE 74; RESP 18; O2SAT 96
[2021-05-22 10:01] VITALS: BP 117/95; PULSE 70; RESP 18; O2SAT 98
[2021-05-22 10:11] VITALS: BP 132/76; PULSE 74; RESP 18; O2SAT 99
== END 2021-05-22 10:28 | disposition home or self-care (01) ==
PROVIDERS: Anesthesiology; PCP Internal Medicine; Visit Provider Internal Medicine Gastroenterology
PROC: 0DJD8ZZ Inspection of Lower Intestinal Tract, Via Natural or Artificial Opening Endoscopic (ICD-10-PCS; CPT 45378; principal; 2021-05-22 09:45)
DX: Z12.11 Encounter for screening for malignant neoplasm of colon (principal); D12.0 Benign neoplasm of cecum; D12.3 Benign neoplasm of transverse colon; K57.30 Diverticulosis of large intestine without perforation or abscess without bleeding; K64.8 Other hemorrhoids; J45.909 Unspecified asthma, uncomplicated; I10 Essential (primary) hypertension; M10.9 Gout, unspecified; F41.9 Anxiety disorder, unspecified; E66.01 Morbid (severe) obesity due to excess calories; Z68.42 Body mass index [BMI] 45.0-49.9, adult; Z87.891 Personal history of nicotine dependence; F12.90 Cannabis use, unspecified, uncomplicated; Z79.51 Long term (current) use of inhaled steroids
CPT/HCPCS: 45380; 45385; 36415; 84702; 88305; C9803; J2001; J2704; J7120; U0003; U0005

== ENCOUNTER 2021-07-07 18:06 | Emergency (ER) | payer OTHER, SELFPAY ==
--- NOTE | ~2021-07-07 | XR_ITS ---
EXAMINATION: XR chest 1V portable EXAM DATE: 07/07/2021 19:37 INDICATION: COVID+. Shortness of breath, cough, chest tightness, body aches. History asthma. TECHNIQUE: Frontal and lateral projections of the chest obtained and reviewed. Comparison is made to prior examination from 08/19/2015. FINDINGS: Probable small amount of ill-defined bilateral acute airspace disease. No confluent consol idation, pneumothorax or pleural effusion suspected. Cardiomediastinal silhouette is normal. There ar e no osseous abnormalities identified. IMPRESSION: Probable mild COVID pneumonia. Reviewed, dictated and finalized at location A. RETE CRUSHER LOADER OPERATOR
[2021-07-07 18:19] VITALS: BP 184/77; PULSE 83; RESP 20; TEMP 36.9; O2SAT 99
--- NOTE | 2021-07-07 19:20 | ECG_ITS ---
Measurements Intervals [place] Rate: 70 P: 26 CT: 145 QRS: 45 QRSD: 91 T: 36 QT: 408 QTc: 443 Interpretive Statements SINUS RHYTHM BORDERLINE T WAVE ABNORMALITY- ANTERIOR LEADS BORDERLINE ECG Electronically Signed On 07-08-2021 8:28:28 SWITCHBOX ASSEMBLER by Den Castillo D.O.
[2021-07-07 20:01] VITALS: BP 150/82; PULSE 72; RESP 20; O2SAT 99
--- NOTE | 2021-07-07 20:07 | ED.GENADULT ---
HPI - General Adult General Chief complaint: Upper Respiratory Infection Stated complaint: covid positive, cough Time Seen by Provider: 07/07/21 19:20 Source: patient Mode of arrival: ambulatory History of Present Illness HPI narrative: Patient is 50 years old white female being complaining of cough with symptom in the last few days, coughing, slight shortness of breath on strenuous activity, body aches, sore throat and nasal congestion. Patient tested positive today, patient denies any headache, nausea, vomiting, or chest pain. Patient is not vaccinated for Covid because she does not believe in it. Related Data Home Medications Medication Instructions Recorded Confirmed cetirizine 30 mg PO DAILY 05/09/21 05/22/21 Allergies Allergy/AdvReac Type Severity Reaction Status Date / Time No Known Allergies Verified 07/07/21 19:22 Review of Systems Review of Systems: CONSTITUTIONAL: Denies fever, chills, or sweats. EYES: Denies visual changes, redness, or discharge. ENT: Denies rhinorrhea, congestion, sore throat, or otalgia. CARDIOVASCULAR: Denies chest pain, palpitations, or edema. RESPIRATORY: Denies cough or dyspnea. GASTROINTESTINAL: Denies abdominal pain, nausea, vomiting, or diarrhea. GENITOURINARY: Denies dysuria or hematuria. SKIN: Denies rash or itching. MUSCULOSKELETAL: Denies back pain, joint pain, or myalgia. NEUROLOGIC: Denies headache, numbness, or weakness. PSYCHIATRIC: Denies anxiety or depression. [facility] Past Medical History Medical History Abscess Acute bronchitis Anxiety Asthma Daytime sleepiness Foot pain Gout Hypertension Lower extremity surgery planned Right lower extremity surgery for infected tattoo and skin graft 2011 Morbid obesity due to excess calories Obesity Osteonecrosis Otalgia of both ears Polyarthritis Screening for lipid disorders Family History Family History Mother Family history of cardiovascular disease Thyroid disease Father Patient's father is in good health Sibling Diabetes mellitus Sibling Type 1 diabetes Kelly's disease Social History Social History Smoking packs per day: 1 Smoking cigarettes per day: 20.0 Smoking status: Never smoker Tobacco type: cigarettes Second hand tobacco smoke exposure: No Smoking end date: 04/27/08 Alcohol intake: never Alcohol use details: Pt drinks rarely. Substance use: current Substance use type: marijuana Other substance usage details: marijuana for sleep Last use: 04/24/19 Gender identity (if verbalized by the patient): Female Spiritual care concerns: No Exam Narrative: General appearance: Well-developed, well-nourished Skin: Normal color Head: Normocephalic, nontraumatic Eyes: Clear conjunctiva ENT: Oropharynx normal, ears normal, nose normal Neck: Supple, nontender Chest and respiratory: Airway patent, no respiratory distress, no accessory muscle use Heart: Regular rate/rhythm Abdomen: Soft, nontender, no organomegaly, quiet bowel sounds Vascular: Normal peripheral pulses, normal capillary refill. Musculoskeletal: Normal range of motion, nontender back Neurologic: Alert and oriented ?3, OPTOMECHANICAL TECHNICIAN is normal as tested, no gross motor deficit Course Course Emergency Course: Stable Vital Signs Vital signs: Vital Signs Temperature 36.9 C 07/07/21 18:19 Pulse Rate 83 07/07/21 18:19 Respiratory Rate 20 07/07/21 18:19 Blood Pressure 184/77 H 07/07/21 18:19 Pulse Oximetry 99 07/07/21 18:19 Temperature 36.9 C 07/07/21 18:19 Puls
--- NOTE | 2021-07-07 21:10 | PC.NURSE ---
This RN called respiratory to follow up on ABG. States they will be over to ED soon.
[2021-07-07 21:23] VITALS: PULSE 64; RESP 18; O2SAT 100
[2021-07-07 21:30] LABS: Alveolar/Arterial O2 Gradient 74.5 mmHg; Fractional Inspired Oxygen 28 %; HCO3 ABG 23.6 mEq/l (22.0-26.0); Oxygen Content ABG 15.8 %vol (16.0-22.0); Oxygen Saturation ABG 96.8 % (95.0-100.0); Oxyhemoglobin 95.3 % THb (90.0-100.0); PCO2 ABG 34.8 mmHg (35.0-45.0); PO2 ABG 84.1 mmHg (80.0-100.0); Total Hemoglobin 11.7 g/dL (12.0-18.0); pH ABG 7.449 (7.350-7.450)
[2021-07-07 21:31] LABS: Modified Allen's Test Pass; Site Drawn RIGHT RADIAL
[2021-07-07 21:32] LABS: Device NASAL CANNULA
== END 2021-07-07 21:44 | disposition home or self-care (01) ==
PROVIDERS: Emergency Provider Emergency Medicine; PCP Internal Medicine
DX: U07.1 COVID-19 (principal); I10 Essential (primary) hypertension; J45.909 Unspecified asthma, uncomplicated
CPT/HCPCS: 36600; 71045; 82805; 93005; 99283

== ENCOUNTER 2021-07-13 13:42 | Outpatient (RCR) | payer OTHER, SELFPAY ==
[2021-07-13] MEDS: ACETAMINOPHEN 325 MG TABLET 650 MG PO (15:14)
[2021-07-13] MEDS: FAMOTIDINE 20 MG TABLET PO (15:14)
[2021-07-13] MEDS: diphenhydrAMINE HCl CAP 25 MG CAPSULE PO (15:15)
[2021-07-13 15:22] VITALS: BP 153/70; PULSE 89; RESP 20; TEMP 36.4; O2SAT 96
[2021-07-13 16:14] VITALS: BP 153/66
== END 2021-07-13 17:00 ==
LOC: AMCINF 13:42
PROVIDERS: PCP Nurse Practitioner; Referring Provider Nurse Practitioner; Visit Provider Internal Medicine Hematology & Oncology
DX: U07.1 COVID-19 (principal); I10 Essential (primary) hypertension; J44.9 Chronic obstructive pulmonary disease, unspecified
CPT/HCPCS: A9270; M0243; Q0244

== ENCOUNTER 2022-06-19 19:58 | Inpatient (IN) | payer OTHER, SELFPAY ==
[2022-06-19] VITALS (24 sets, daily range): BP systolic 166–210; BP diastolic 69–102; PULSE 82–97; RESP 15–29; TEMP 36.7; O2SAT 91–98
--- NOTE | ~2022-06-19 | CT_ITS ---
Clinical Indication: Pulmonary embolus CT Scan of the Chest with Contrast: Technique: Contiguous sections were acquired throughout the chest after intravenous administration of 100 cc of Omnipaque 350. Coronal maximum intensity projection 3-D reconstructions were created by mustapha mckay technologist. Dose reduction technique was used on this scan by utilizing automated exposure contr ol and iterative reconstruction technique. The dose-length product (DLP) was 909.04 mGy-cm. Findings: There is no evidence of any significant mediastinal, hilar or axillary lymphadenopathy. There is no f illing defect in the pulmonary arterial tree to suggest pulmonary embolus. There is no evidence of ao rtic dissection or aneurysm. There is no evidence of pleural or pericardial effusion. There is extensive groundglass opacity in the right upper lobe and lingula. There is atelectatic clark ge in the right middle lobe and lung bases bilaterally. Images through the upper abdomen reveal no abnormalities. Impression: No evidence of pulmonary embolus, aortic dissection, or aortic aneurysm. Extensive groundglass opacity right upper lobe and lingula. Finding suggests pneumonia/infectious pro cess versus potentially other inflammatory conditions. Correlate clinically. Bibasilar atelectatic changes. Reviewed, dictated and finalized at location [] OW MACHINE OPERATOR Impression: No evidence of pulmonary embolus, aortic dissection, or aortic aneurysm. Extensive groundglass opacity right upper lobe and lingula. Finding suggests pn eumonia/infectious process versus potentially other inflammatory conditions. Co rrelate clinically. Bibasilar atelectatic changes.
--- NOTE | ~2022-06-19 | XR_ITS ---
EXAMINATION: XR chest 1V portable Exam Date/Time: 06/19/2022 20:20 PEDIATRIC ALLERGIST HISTORY: SOB, LOW 02 LEVELS, HX HTN Comparison: None available. RESULT: Lines, tubes, and devices: None. Lungs and pleura: Mildly increased diffuse reticular opacities and vascular congestion. Cardiomediastinal silhouette: Stable. Other: No acute osseous or upper abdominal finding. IMPRESSION: Mild interstitial edema. Reviewed, dictated and finalized at location K. ATRIC ALLERGIST IMPRESSION: Mild interstitial edema.
--- NOTE | 2022-06-19 20:12 | ECG_ITS ---
Measurements Intervals [place] Rate: 85 P: 55 SC: 168 QRS: 56 QRSD: 86 T: 47 QT: 375 QTc: 448 Interpretive Statements SINUS RHYTHM LOW QRS VOLTAGE IN PRECORDIAL LEADS [QRS DEFLECTION < 1.0 mV IN CHEST LEADS] COMPARED TO ECG 07/07/2021 19:28:02 NO SIGNIFICANT CHANGES Electronically Signed On 06-20-2022 13:17:37 LATHE TENDER by oTby Valera M.D.
--- NOTE | 2022-06-19 20:13 | ED.GENADULT ---
HPI - General Adult General Chief complaint: Shortness of Breath/Dyspnea Stated complaint: shortness of breath, wheezing, asthma hx Time Seen by Provider: 06/19/22 20:12 History of Present Illness HPI narrative: This is a 51-year-old female history of asthma presenting to ED with difficulty breathing. Patient has had a sinus infection over the last several days. Her breathing has gotten steadily worse despite using her breathing treatments at home. Several hours ago became acutely worsened she has been unable to catch her breath. The patient has never been intubated before. She has never required BiPAP before. She uses the ER approximately 1 time per month. She denies fever, chills, chest pain, abdominal pain, nausea vomiting or diarrhea. She denies lower extremity edema or history of blood clots. Related Data Home Medications Medication Instructions Recorded Confirmed cetirizine 10 mg tablet 30 mg PO DAILY 05/09/21 07/13/21 Allergies Allergy/AdvReac Type Severity Reaction Status Date / Time No Known Allergies Verified 06/19/22 20:14 Review of Systems Review of Systems: CONSTITUTIONAL: Denies night sweats. EYES: No eye pain ENT: Denies rhinorrhea CARDIOVASCULAR: Denies palpitations RESPIRATORY: Denies hemoptysis GASTROINTESTINAL: Denies hematemesis GENITOURINARY: Denies hematuria. SKIN: Denies rash MUSCULOSKELETAL: Denies myalgia. NEUROLOGIC: Denies weakness. PSYCHIATRIC: Denies delusions PMFSH Past Medical History Medical History Abscess Acute bronchitis Anxiety Asthma Daytime sleepiness Foot pain Gout Hypertension Lower extremity surgery planned Right lower extremity surgery for infected tattoo and skin graft 2011 Morbid obesity due to excess calories Obesity Osteonecrosis Otalgia of both ears Polyarthritis Screening for lipid disorders Family History Family History Mother Family history of cardiovascular disease Thyroid disease Father Patient's father is in good health Sibling Diabetes mellitus Sibling Type 1 diabetes Kelly's disease Social History Social History Smoking packs per day: 1 Smoking cigarettes per day: 20.0 Smoking status: Never smoker Tobacco type: cigarettes Second hand tobacco smoke exposure: No Smoking end date: 10/21/08 Alcohol intake: never Alcohol use details: Pt drinks rarely. Substance use: current Substance use type: marijuana Other substance usage details: marijuana for sleep Last use: 04/24/19 Gender identity (if verbalized by the patient): Female Spiritual care concerns: No Exam Narrative: APPEARANCE: Patient is in respiratory distress. She has 1-2 word dyspnea. Head: atraumatic. EYES: EOMI, NOSE: Atraumatic NECK: Trachea midline RESPIRATORY: Increased respiratory rate, scant diffuse wheezing prolonged expiratory phase in all [place]. CARDIOVASCULAR: RRR, ABDOMINAL: Non-distended MUSCULOSKELETAl: No obvious deformities NEURO: Alert. Moving 4/4 extremities SKIN:: Warm, dry. Normal color PSYCHIATRIC: Normal affect Course Vital Signs Vital signs: Vital Signs Temperature 98.0 F 06/19/22 20:01 Pulse Rate 93 06/19/22 20:01 Blood Pressure 166/102 H 06/19/22 20:01 Pulse Oximetry 91 06/19/22 20:01 Oxygen Delivery Room Air 06/19/22 20:01 Temperature 98.0 F 06/19/22 20:01 Pulse Rate 88 06/19/22 20:29 Respiratory Rate 16 06/19/22 20:29 Blood Pressure 166/102 H 06/19/22 20:01 Pulse Oximetry 95 06/19/22 20:26 Oxygen Delivery BiPAP 06/19/22 20:26 Oxygen Flow Rate 3 06/19/22 20:13 Procedures ABG Interpretation ABG Interpretation 1: ABG Results: 7.4/36.8/80.3/22.3 Interpretation: normal Medical Decision Making MDM Narrative Medical decision making narrative: This is a 51-yea
[2022-06-19 20:24] LABS: Basophils Percent Auto 0.3 % (0.2-1.2); Eosinophils Absolute Auto 0.1 K/mm3 (0-0.3); Eosinophils Percent Auto 1.9 % (0-4.4); Hemoglobin 11.5 g/dL (12.0-15.0); Immature Granulocyte Absolute 0.03 K/mm3 (0.00-0.031); Immature Granulocyte Percent A 0.4 % (0-0.5); Lymphocytes Absolute Auto 1.03 K/mm3 (0.9-3.2); Lymphocytes Percent Auto 14.9 % (18.3-44.2); Mean Corpuscular HGB Conc 31.1 g/dl (32-36); Mean Corpuscular Hemoglobin 24.6 pg (26-34); Mean Corpuscular Volume 79.2 fl (80-100); Mean Platelet Volume 9.8 fl (7.4-10.4); Monocytes Absolute Auto 0.6 K/mm3 (0.1-0.6); Monocytes Percent Auto 8.4 % (2.6-8.5); Neutrophils Absolute Auto 5.1 K/mm3 (1.3-6.7); Neutrophils Percent Auto 74.1 % (45.5-73.1); Platelet Count Result 250 k/mm3 (150-375); Red Blood Count 4.67 M/mm3 (4.2-5.4); Red Cell Distribution Width 16.9 % (11.5-14.5); White Blood Count 6.9 K/mm3 (4.5-10.0)
[2022-06-19] MEDS: SODIUM CHLORIDE 0.9% IV 1,000 ML 999 ML IV CONT (20:25)
[2022-06-19] MEDS: ALBUTEROL SULFATE NEB 2.5 MG/3 ML INH 15 MG INHALATION (20:28)
[2022-06-19] MEDS: IPRATROPIUM BR 0.02% INH SOLN 0.5 MG/2.5 ML VIAL 1.5 MG INHALATION (20:28)
[2022-06-19] MEDS: methylPREDNISolone SOD SUCC 125 MG VIAL IV PUSH (20:29)
[2022-06-19] MEDS: MAGNESIUM SULF 2 GM/WATER 50ML 2 GM/50 ML BAG IVPB (20:29)
[2022-06-19 20:43] LABS: Anion Gap 8 mmol/L (8-16); Blood Urea Nitrogen 16 mg/dL (7-17); Calcium 8.9 mg/dL (8.4-10.2); Carbon Dioxide 26 mmol/L (22-30); Chloride 105 mmol/L (98-107); Estimated CRCL calculation 71 ml/min; Estimated Glomerular Filt Rate > 60; Glucose 93 mg/dL (65-110); Magnesium 2.1 mg/dL (1.6-2.3); Potassium 4.1 mmol/L (3.4-5.0); Sodium 139 mmol/L (137-145)
[2022-06-19 22:12] LABS: Influenza A QL RT-PCR Positive (Negative); Influenza B QL RT-PCR Negative (Negative); RSV RNA, RT-PCR Negative (Negative); SARS-CoV-2 RNA PCR Negative
[2022-06-19 22:35] LABS: Alveolar/Arterial O2 Gradient 234.8 mmHg; Base Excess ABG -2.1 mEq/l (+/-2.0); Fractional Inspired Oxygen 50 %; HCO3 ABG 22.3 mEq/l (22.0-26.0); Oxygen Content ABG 15.6 %vol (16.0-22.0); Oxygen Saturation ABG 95.9 % (95.0-100.0); Oxyhemoglobin 93.7 % THb (90.0-100.0); PCO2 ABG 36.8 mmHg (35.0-45.0); PO2 ABG 80.3 mmHg (80.0-100.0); PO2 FiO2 Ratio Arterial Blood 1.61 %; Total Hemoglobin 11.8 g/dL (12.0-18.0)
[2022-06-19 22:36] LABS: Device NON-INVASIVE VENT; Modified Allen's Test Pass; Site Drawn RIGHT RADIAL
[2022-06-19 22:37] LABS: Non-Invasive Expiratory Pressure 5 CMH2O; Non-Invasive Inspiratory Pressure 15 CMH2O; Non-Invasive Vent Rate 4 /MIN
[2022-06-19 23:49] LABS: NT Pro B Type Natriuretic Pept 111 pg/mL (5-100)
[2022-06-20] VITALS (70 sets, daily range): BP systolic 115–203; BP diastolic 70–105; PULSE 76–102; RESP 14–32; TEMP 37.1; O2SAT 92–100
--- NOTE | 2022-06-20 | ECHO_ITS ---
Patient Info Name: Erin Davis Age: 51 years : 1970 Gender: Female Ht: 62 in Wt: 175 lbs BSA: 1.90 m2 HR: 86 bpm BP: 62 / 80 mmHg Heart Rhythm: Sinus Rhythm Technical Quality: Fair Exam Date: 06/20/2022 4:43 PM Exam Location: [facility] Card Pulmonary Patient Status: Inpatient Admit Date: 06/20/2022 Staff Ordering Physician: Marychuy Lino MD Veneer Drier Feeder: Arabella Khan RDCS Attending Provider: Natasha Martell MD Referring Physician: Zoie MONSON; Exam Type: CA echo doppler color flow Study Info Indications R06.02 - Shortness of breath Complete two-dimensional, color flow and Doppler transthoracic echocardiogram is performed. Summary 1. Complete two-dimensional, color flow and Doppler transthoracic echocardiogram is performed. 2. Left ventricular chamber dimension is normal. 3. Left ventricular systolic function is normal, estimated at 60-65%. 4. The left ventricular diastolic function is grade I diastolic dysfunction. 5. E/e' 11 is mildly elevated. 6. There is trace mitral valve regurgitation. 7. No pulmonary hypertension, estimated pulmonary arterial systolic pressure is 21 mmHg. Left Ventricle E/e' 11 is mildly elevated. Left ventricular chamber dimension is normal. Left ventricular systolic function is normal, estimated at 60-65%. The left ventricular diastolic function is grade I diastolic dysfunction. Right Ventricle Right ventricular systolic function is normal and with normal TAPSE 2.1 cm. Right ventricular chamber dimension is normal. Left Atria Left atrial chamber dimension is normal. Right Atria Right atrial chamber dimension is normal. Aortic Valve The aortic valve is trileaflet. There is no aortic valve stenosis. There is no aortic valve regurgitation. Pulmonic Valve There is no pulmonic regurgitation. Mitral Valve There is no mitral valve stenosis. There is trace mitral valve regurgitation. Tricuspid Valve There is no tricuspid valve regurgitation. No pulmonary hypertension, estimated pulmonary arterial systolic pressure is 21 mmHg. Pericardium/Pleural There is no pericardial effusion. Inferior Vena Cava Normal inferior vena cava with >50% collapse upon inspiration consistent with normal right atrial pressure, 5 mmHg. Aorta The aortic root size at the sinus of Valsalva is normal. Left Ventricular Outflow Tract Name Value Normal LVOT 2D LVOT Diameter 2.0 cm LVOT Doppler LVOT Peak Gradient 6 mmHg LVOT Mean Gradient 3 mmHg LVOT VTI 23 cm LVOT VTI/AV VTI Ratio 0.9 LVOT Stroke Volume 71 ml LVOT CO 5.7 l/min LVOT CI 3.0 l/min/m2 Pulmonic Valve Name Value Normal RVOT Doppler
[2022-06-20] MEDS: LORazepam INJ (*CRX) 2 MG/ML VIAL 1 MG IV PUSH (04:20)
--- NOTE | 2022-06-20 06:12 | PC.NURSE ---
THis RN called Dr rivera and got a verbal order for 1mg IV push ativan at 0418 Verbal read back order
[2022-06-20 08:20] LABS: Alveolar/Arterial O2 Gradient 239.9 mmHg; Base Excess ABG -1.6 mEq/l (+/-2.0); Carboxyhemoglobin 0.4 % THb (0-2.0); Fractional Inspired Oxygen 50 %; HCO3 ABG 22.9 mEq/l (22.0-26.0); Methemoglobin ABG 0.1 %THb (0-1.5); Oxygen Saturation ABG 94.9 % (95.0-100.0); Oxyhemoglobin 93.1 % THb (90.0-100.0); PCO2 ABG 38.1 mmHg (35.0-45.0); PO2 ABG 73.7 mmHg (80.0-100.0); PO2 FiO2 Ratio Arterial Blood 1.47 %; Reduced Hemoglobin 6.4 %THb (0-5.0); Total Hemoglobin 12.2 g/dL (12.0-18.0); pH ABG 7.397 (7.350-7.450)
[2022-06-20 08:21] LABS: Modified Allen's Test Pass; Site Drawn LEFT RADIAL
[2022-06-20 08:22] LABS: Device NON-INVASIVE VENT; Non-Invasive Expiratory Pressure 5 CMH2O; Non-Invasive Inspiratory Pressure 15 CMH2O; Non-Invasive Vent Rate 4 /MIN
[2022-06-20] MEDS: OSELTAMIVIR PHOSPHATE 75 MG CAPSULE PO ×2 (08:40→23:09)
--- NOTE | 2022-06-20 08:46 | PC.NURSE ---
Pt up to bathroom. Becomes wheezy and sob with minimal exertion. SPO2 84% without 02. Placed on 6 l NC with SPO2 94% to eat breakfast.
[2022-06-20] MEDS: ACETAMINOPHEN 325 MG TABLET 650 MG PO ×2 (09:56→16:38)
[2022-06-20] MEDS: hydrOXYzine HCL 25 MG TABLET PO (12:10)
--- NOTE | 2022-06-20 14:53 | PM.IMHP ---
H&P: HPI History of Present Illness Date/Time: 06/20/22 14:53 Chief Complaint: Shortness of breath Narrative: 51F with a past medical history of asthma, gout, psoriasis, depression who presents to the emergency department with shortness of breath. Patient says she has been having sinusitis symptoms for the past few weeks with congestion, rhinorrhea, cough. She had been taking over the counter mucinex and fluticasone to help with the congestion. She says this usually happens this time of year. She felt she was improving but over the last few days she has felt increasingly short of breath and also has associated chest tightness. She says her secretions have been thick in the past few days. She denies fever, chills, abdominal pain, nausea, vomiting, dysuria. She has noticed muscle aches in her legs in the last few days as well. She denies chest pain. She had two family members test positive for influenza A this past Saturday, June 16, 2022. She had her influenza vaccine this year, so she was not worried about getting influenza. In the emergency department, Given albuterol and ipratropium neb x1. Methylprednisolone 125 mg IV x1. Influenza A positive. Oseltamivir x1. CXR with mild interstitial edema. Patient placed on bipap. Review of Systems Constitutional: Constitutional: Reports body ache(s) and Denies chills ENT: Reports nasal congestion and Reports nasal discharge Cardiovascular: Cardiovascular: Denies chest pain and Denies leg edema Respiratory: Respiratory: Reports chest congestion, Reports cough, Reports dyspnea, Reports dyspnea on exertion and Reports wheezing Gastrointestinal: Gastrointestinal: Denies abdominal pain, Denies constipation, Denies diarrhea, Denies nausea and Denies vomiting Genitourinary: Genitourinary: Denies dysuria and Denies urinary urgency Musculoskeletal: Musculoskeletal: Reports myalgias Integumentary/Breasts: Skin/Breast: Reports rash Comments: psoriasis Neurologic: Denies confusion PMFSH Past Medical History Medical History (Updated 06/20/22 @ 22:34 by Marychuy Lino MD) Abscess Acute bronchitis Anxiety Asthma Daytime sleepiness Foot pain Gout Hypertension Lower extremity surgery planned Right lower extremity surgery for infected tattoo and skin graft 2011 Morbid obesity due to excess calories Obesity Osteonecrosis Otalgia of both ears Polyarthritis Psoriasis Screening for lipid disorders Surgical History Surgical History (Updated 06/20/22 @ 22:25 by Marychuy Lino MD) History of surgery on lower extremity Family History Family History (Updated 06/20/22 @ 22:27 by Marychuy Lino MD) Mother Family history of cardiovascular disease Thyroid disease Heart disease Father Patient's father is in good health Sibling Diabetes mellitus Sibling Type 1 diabetes Kelly's disease Grandparent Heart disease Carcinoma of colon Lung cancer Social History Social History (Updated 06/20/22 @ 22:28 by Marychuy Lino MD) Smoking packs per day: 1 Smoking cigarettes per day: 20.0 Tobacco type: cigarettes Second hand tobacco smoke exposure: No Smoking end date: 04/27/08 Alcohol intake: never Alcohol use details: Pt drinks rarely. Substance use: current Substance use type: marijuana Other substance usage details: marijuana for sleep Last use: 04/24/19 Occupation/Education: occupation Additional occupation/education comments: Works in sales Gender identity (if verbalized by the patient): Female Spiritual care concerns: No Comments Never been and no children. Postmenopausal. Meds Home Medications and Allergies Home Medications Medication Instructions Recorded Confirmed Type fluticasone propionate 50 1 spray intranasal DAILY PRN nasal 04/25/20 07/13/21 Rx mcg/actuation nasal congestion #18.2 mL spray,suspension (Flonase Allergy Relief) allopurinol 100 mg tablet 100 mg PO DAILY #9
[2022-06-20 15:14] LABS: Basophils Percent Auto 0.1 % (0.2-1.2); Hematocrit 39.2 % (37.0-47.0); Hemoglobin 11.7 g/dL (12.0-15.0); Immature Granulocyte Absolute 0.08 K/mm3 (0.00-0.031); Immature Granulocyte Percent A 0.7 % (0-0.5); Lymphocytes Percent Auto 3.6 % (18.3-44.2); Mean Corpuscular HGB Conc 29.8 g/dl (32-36); Mean Corpuscular Hemoglobin 24.6 pg (26-34); Mean Corpuscular Volume 82.4 fl (80-100); Mean Platelet Volume 9.8 fl (7.4-10.4); Monocytes Absolute Auto 0.5 K/mm3 (0.1-0.6); Monocytes Percent Auto 4.5 % (2.6-8.5); Neutrophils Absolute Auto 10.1 K/mm3 (1.3-6.7); Neutrophils Percent Auto 91.1 % (45.5-73.1); Platelet Count Result 291 k/mm3 (150-375); Red Blood Count 4.76 M/mm3 (4.2-5.4); White Blood Count 11.1 K/mm3 (4.5-10.0)
[2022-06-20 15:26] LABS: Alanine Aminotransferase 29 U/L (6-35); Albumin Level 4.4 g/dL (3.5-5.1); Alkaline Phosphatase 113 U/L (38-126); Anion Gap 8 mmol/L (8-16); Aspartate Amino Transferase 33 U/L (14-36); Bilirubin,Total 0.3 mg/dL (0.2-1.3); Blood Urea Nitrogen 15 mg/dL (7-17); Carbon Dioxide 26 mmol/L (22-30); Chloride 102 mmol/L (98-107); Estimated CRCL calculation 80 ml/min; Estimated Glomerular Filt Rate > 60; Glucose 124 mg/dL (65-110); Potassium 4.5 mmol/L (3.4-5.0); Sodium 136 mmol/L (137-145)
[2022-06-20] MEDS: FLUTICASONE PROPIONATE 0.05% NA SPR 16 GM BTL (*BKC) 1 SPRAY NASAL ×2 (15:37→23:09)
[2022-06-20] MEDS: PHENYLEPHRINE 1% NA SPR (*BKC) 15 ML BTL 1 SPRAY NASAL (15:37)
[2022-06-20] MEDS: ENOXAPARIN 40 MG/0.4 ML SYRINGE SUB-Q (15:37)
[2022-06-20] MEDS: methylPREDNISolone SOD SUCC 125 MG VIAL 60 MG IV PUSH (15:37)
[2022-06-20] MEDS: IPRATROPIUM BR 0.02% INH SOLN 0.5 MG/2.5 ML VIAL INHALATION ×2 (16:45→22:36)
[2022-06-20] MEDS: ALBUTEROL SULFATE NEB 2.5 MG/3 ML INH INHALATION ×2 (16:45→22:36)
--- NOTE | 2022-06-20 18:32 | PCRCNOTE ---
Window of time for administration has passed. See next scheduled administration.
[2022-06-20] MEDS: SERTRALINE HCL 50 MG TABLET PO (20:08)
[2022-06-20 21:32] LABS: Fractional Inspired Oxygen 40 %; HCO3 ABG 24.6 mEq/l (22.0-26.0); Oxygen Content ABG 16.6 %vol (16.0-22.0); Oxygen Saturation ABG 93.3 % (95.0-100.0); Oxyhemoglobin 91.3 % THb (90.0-100.0); PCO2 ABG 35.7 mmHg (35.0-45.0); PO2 ABG 63.1 mmHg (80.0-100.0); PO2 FiO2 Ratio Arterial Blood 1.58 %; Total Hemoglobin 12.9 g/dL (12.0-18.0); pH ABG 7.456 (7.350-7.450)
[2022-06-20 21:33] LABS: Device BIPAP; Modified Allen's Test Pass; Site Drawn LEFT RADIAL
--- NOTE | 2022-06-20 22:51 | ADMGEN ---
This patient, Erin Davis, was admitted to IMU Room 213-01 on 06/20/22 at 2020. Patient/family oriented to hospital policies and general routines including ID bracelet, bed and alarms, visiting hours, pain management, procedures, bathroom and other care routines, personal items, smoking policy, room service/diet, and visiting hours. Information on how to activate the Rapid Response Team has been discussed. Patient/Family are encouraged to report perceived risks to care and to ask questions if they do not understand what they are told or what they should do.
[2022-06-21] VITALS (25 sets, daily range): BP systolic 104–157; BP diastolic 55–87; PULSE 63–95; RESP 18–32; TEMP 36.2–37.1; O2SAT 94–100
[2022-06-21] MEDS: PANTOPRAZOLE 40 MG TABLET PO ×2 (00:42→14:15)
[2022-06-21] MEDS: methylPREDNISolone SOD SUCC 125 MG VIAL 60 MG IV PUSH ×5 (00:46→23:52)
[2022-06-21] MEDS: IPRATROPIUM BR 0.02% INH SOLN 0.5 MG/2.5 ML VIAL INHALATION ×6 (02:06→19:47)
[2022-06-21] MEDS: ALBUTEROL SULFATE NEB 2.5 MG/3 ML INH INHALATION ×6 (02:06→19:47)
[2022-06-21 05:14] LABS: Basophils Percent Auto 0.1 % (0.2-1.2); Hematocrit 34.9 % (37.0-47.0); Hemoglobin 10.7 g/dL (12.0-15.0); Immature Granulocyte Absolute 0.07 K/mm3 (0.00-0.031); Immature Granulocyte Percent A 0.9 % (0-0.5); Lymphocytes Absolute Auto 0.39 K/mm3 (0.9-3.2); Lymphocytes Percent Auto 5.1 % (18.3-44.2); Mean Corpuscular HGB Conc 30.7 g/dl (32-36); Mean Corpuscular Hemoglobin 24.3 pg (26-34); Mean Corpuscular Volume 79.1 fl (80-100); Monocytes Absolute Auto 0.3 K/mm3 (0.1-0.6); Monocytes Percent Auto 3.4 % (2.6-8.5); Neutrophils Absolute Auto 6.9 K/mm3 (1.3-6.7); Neutrophils Percent Auto 90.5 % (45.5-73.1); Platelet Count Result 266 k/mm3 (150-375); Red Blood Count 4.41 M/mm3 (4.2-5.4); White Blood Count 7.6 K/mm3 (4.5-10.0)
[2022-06-21 05:30] LABS: Anion Gap 7 mmol/L (8-16); Blood Urea Nitrogen 19 mg/dL (7-17); Calcium 8.7 mg/dL (8.4-10.2); Carbon Dioxide 27 mmol/L (22-30); Chloride 108 mmol/L (98-107); Estimated CRCL calculation 91 ml/min; Estimated Glomerular Filt Rate > 60; Glucose 147 mg/dL (65-110); Potassium 4.1 mmol/L (3.4-5.0); Sodium 142 mmol/L (137-145)
[2022-06-21 05:38] LABS: Hemoglobin A1C 5.4 % (<5.7)
[2022-06-21 05:39] LABS: Transferrin 209 mg/dL (206-381)
[2022-06-21 05:51] LABS: Iron 23 ug/dL (37-170)
[2022-06-21 05:53] LABS: Percent Iron Saturation 8 % (20-50)
[2022-06-21 06:45] LABS: Alveolar/Arterial O2 Gradient 171.8 mmHg; Base Excess ABG 2.6 mEq/l (+/-2.0); Fractional Inspired Oxygen 40 %; HCO3 ABG 27.5 mEq/l (22.0-26.0); Oxygen Content ABG 16.2 %vol (16.0-22.0); Oxygen Saturation ABG 92.3 % (95.0-100.0); Oxyhemoglobin 90.6 % THb (90.0-100.0); PCO2 ABG 43.9 mmHg (35.0-45.0); PO2 ABG 62.9 mmHg (80.0-100.0); PO2 FiO2 Ratio Arterial Blood 1.57 %; Total Hemoglobin 12.7 g/dL (12.0-18.0); pH ABG 7.415 (7.350-7.450)
[2022-06-21 06:46] LABS: Device NON-INVASIVE VENT; Modified Allen's Test Pass; Non-Invasive Vent Rate 4 /MIN; Site Drawn RIGHT RADIAL
[2022-06-21 06:47] LABS: Non-Invasive Expiratory Pressure 5 CMH2O; Non-Invasive Inspiratory Pressure 15 CMH2O
[2022-06-21] MEDS: OSELTAMIVIR PHOSPHATE 75 MG CAPSULE PO ×2 (11:24→21:41)
[2022-06-21] MEDS: FLUTICASONE PROPIONATE 0.05% NA SPR 16 GM BTL (*BKC) 1 SPRAY NASAL ×2 (11:25→21:41)
[2022-06-21] MEDS: allopurinoL 100 MG TABLET PO ×2 (11:25→21:41)
--- NOTE | 2022-06-21 12:18 | PM.IMPN ---
Progress Note: A&P Assessment and Plan (1) Shortness of breath: Code(s): R06.02 - Shortness of breath Status: Acute Assessment and Plan: BNP 111, so mildly elevated. Having URI symptoms. Had improvement after initial treatment in the emergency department with duoneb and steroids. No hypoxia documented. Influenza A positive. CTA chest with no PE but with right upper lobe ground glass opacity suggestive of pneumonia/infectious process versus other inflammatory conditions. Echo EF 60-65% with grade I diastolic dysfunction. -ROHIT, ANCA, complement, HCV -Ceftriaxone & azithromycin -Methylprednisolone 60mg q6h -Albuterol-ipratropium neb q4h -Continue oseltamivir -Wean oxygen as tolerated (2) Influenza: Code(s): J11.1 - Influenza due to unidentified influenza virus with other respiratory manifestations Status: Acute Assessment and Plan: Continue oseltamivir. (3) Acute asthma exacerbation: Code(s): J45.901 - Unspecified asthma with (acute) exacerbation Status: Acute Assessment and Plan: Appears to be having an acute asthma exacerbation likely due to respiratory infection. -Methylprednisolone 60mg q6h -Albuterol-ipratropium neb q4h (4) Microcytic anemia: Code(s): D50.9 - Iron deficiency anemia, unspecified Status: Acute Assessment and Plan: No evidence of bleeding at this time. -Iron studies -Reticulocyte count (5) Psoriasis: Code(s): L40.9 - Psoriasis, unspecified Status: Acute Assessment and Plan: Recently diagnosed and denies use of biologic agents. Currently being treated with topical creams. The steroids she is receiving for the asthma exacerbation should help this as well, so will hold topical creams for now. (6) Gout: Qualifiers: Chronicity: acute Gout etiology: unspecified cause Gout site: foot Laterality: left Qualified Code(s): M10.9 - Gout, unspecified Code(s): M10.9 - Gout, unspecified Status: Acute Assessment and Plan: Continue home allopurinol. (7) Anxiety: Code(s): F41.9 - Anxiety disorder, unspecified Status: Acute Assessment and Plan: Reports taking sertraline 50 mg po daily. Was given a dose of hyxdroxizine x 1 in ED, which worked well. -Continue sertraline -Hydroxyzine PRN Plan Enoxaparin prophylaxis Mom or is contact/decision maker GI prophylaxis indicated due to steroid dose Subjective Date/time seen: 06/21/22 21:18 Patient seen and examined this morning with and nurse at bedside. Patient says she feels much better this morning. Says she no longer feels like she has an elephant on her chest. Of note, prior to coming to the hospital patient says she had been having gradually worsening breathing with shortness of breath but that after she got in bed she suddenly felt like an elephant was sitting on her chest in addition to the chest tightness. Patient is on 6LNC during rounds this morning. Review of Systems Cardiovascular: Cardiovascular: Denies chest pain Respiratory: Respiratory: Reports dyspnea Exam Narrative: GENERAL: NAD, cooperative HEENT: Normocephalic, atraumatic, anicteric, nares clear, oropharynx moist and clear, dentition normal NECK: Supple CV: Normal S1, S2, RRR, No MRG RESP: Scattered expiratory wheezes. No rhonchi or rales. EXTREMITIES: Warm and well perfused, no clubbing, cyanosis, or edema. SKIN: warm, dry and intact. Back/shoulder tattoo NEURO: CN II-XII grossly intact. Objective Data Vital Signs Vital Signs: Vital Signs - 24 hr 06/20/22 23:57 06/20/22 22:45 06/21/22 01:10 Temperature 37.1 C Pulse Rate 95 87 87 Respiratory Rate 20 28 H 26 H Blood Pressure 159/74 H Pulse Oximetry 100 Oxygen Delivery Oxygen Flow Rate Fraction of Inspired Oxygen 06/21/22 00:00 06/20/22 22:00 06/21/22 00:00 Temperature Pulse Rat
[2022-06-21] MEDS: PHENYLEPHRINE 1% NA SPR (*BKC) 15 ML BTL 1 SPRAY NASAL (14:15)
[2022-06-21] MEDS: ENOXAPARIN 40 MG/0.4 ML SYRINGE SUB-Q (17:53)
[2022-06-21] MEDS: SERTRALINE HCL 50 MG TABLET PO (21:41)
[2022-06-22] VITALS (24 sets, daily range): BP systolic 146–193; BP diastolic 59–99; PULSE 58–104; RESP 16–22; TEMP 36.1–37; O2SAT 89–98
[2022-06-22] MEDS: ALBUTEROL SULFATE NEB 2.5 MG/3 ML INH INHALATION ×6 (00:18→20:51)
[2022-06-22] MEDS: IPRATROPIUM BR 0.02% INH SOLN 0.5 MG/2.5 ML VIAL INHALATION ×6 (00:18→20:51)
[2022-06-22] MEDS: methylPREDNISolone SOD SUCC 125 MG VIAL 60 MG IV PUSH ×4 (05:03→23:48)
[2022-06-22 05:23] LABS: Complement C3 130 mg/dL (88-165)
[2022-06-22 06:26] LABS: Hepatitis C Virus Antibody Negative (Negative)
[2022-06-22] MEDS: FLUTICASONE PROPIONATE 0.05% NA SPR 16 GM BTL (*BKC) 1 SPRAY NASAL ×2 (08:55→20:28)
[2022-06-22] MEDS: SERTRALINE HCL 50 MG TABLET PO (08:55)
[2022-06-22] MEDS: PHENYLEPHRINE 1% NA SPR (*BKC) 15 ML BTL 1 SPRAY NASAL ×2 (08:55→20:21)
[2022-06-22] MEDS: allopurinoL 100 MG TABLET PO (08:56)
--- NOTE | 2022-06-22 09:38 | PM.IMPN ---
Progress Note: A&P Assessment and Plan (1) Shortness of breath: Code(s): R06.02 - Shortness of breath Status: Acute Assessment and Plan: BNP 111, so mildly elevated. Having URI symptoms. Had improvement after initial treatment in the emergency department with duoneb and steroids. No hypoxia documented. Influenza A positive. CTA chest with no PE but with right upper lobe ground glass opacity suggestive of pneumonia/infectious process versus other inflammatory conditions. Echo EF 60-65% with grade I diastolic dysfunction. Clinically improved on 4LNC during rounds. -Ceftriaxone & azithromycin -Methylprednisolone 60mg q6h -Albuterol-ipratropium neb q4h -Continue oseltamivir -Wean oxygen as tolerated -Will discontinue methylprednisolone and order prednisone to start in AM. (2) Influenza: Code(s): J11.1 - Influenza due to unidentified influenza virus with other respiratory manifestations Status: Acute Assessment and Plan: Continue oseltamivir. (3) Acute asthma exacerbation: Code(s): J45.901 - Unspecified asthma with (acute) exacerbation Status: Acute Assessment and Plan: Appears to be having an acute asthma exacerbation likely due to respiratory infection. -Methylprednisolone 60mg q6h -Albuterol-ipratropium neb q4h Will discontinue methylprednisolone and order prednisone to start in AM. (4) Microcytic anemia: Code(s): D50.9 - Iron deficiency anemia, unspecified Status: Acute Assessment and Plan: No evidence of bleeding at this time. Studies c/w with VENANCIO. -Ferrous gluconate every other day (5) Psoriasis: Code(s): L40.9 - Psoriasis, unspecified Status: Acute Assessment and Plan: Recently diagnosed and denies use of biologic agents. Currently being treated with topical creams. The steroids she is receiving for the asthma exacerbation should help this as well, so will hold topical creams for now. (6) Gout: Qualifiers: Chronicity: acute Gout etiology: unspecified cause Gout site: foot Laterality: left Qualified Code(s): M10.9 - Gout, unspecified Code(s): M10.9 - Gout, unspecified Status: Acute Assessment and Plan: Continue home allopurinol. (7) Anxiety: Code(s): F41.9 - Anxiety disorder, unspecified Status: Acute Assessment and Plan: Reports taking sertraline 50 mg po daily. Was given a dose of hyxdroxizine x 1 in ED, which worked well. -Continue sertraline -Hydroxyzine PRN Plan Enoxaparin prophylaxis Mom or is contact/decision maker GI prophylaxis indicated due to steroid dose Subjective Date/time seen: 06/22/22 09:38 Patient says she feels much better this morning. Denies shortness of breath, wheezing, difficulty breathing. Review of Systems Respiratory: Respiratory: Denies dyspnea and Denies dyspnea on exertion Exam Narrative: GENERAL: NAD, cooperative HEENT: Normocephalic, atraumatic, anicteric, nares clear, oropharynx moist and clear, dentition normal NECK: Supple CV: Normal S1, S2, RRR, No MRG RESP: No wheezes, rhonchi or rales. CTAB EXTREMITIES: Warm and well perfused, no clubbing, cyanosis, or edema. SKIN: warm, dry and intact. Back/shoulder tattoo NEURO: CN II-XII grossly intact. Objective Data Vital Signs Vital Signs: Vital Signs - 24 hr 06/21/22 10:00 06/21/22 12:14 06/21/22 12:00 Temperature 36.6 C Pulse Rate 89 88 85 Respiratory Rate 18 20 Blood Pressure 155/81 H Pulse Oximetry 95 Oxygen Delivery Oxygen Flow Rate 06/21/22 12:00 06/21/22 14:00 06/21/22 16:57 Temperature Pulse Rate 95 86 69 Respiratory Rate 18 Blood Pressure Pulse Oximetry Oxygen Delivery Oxygen Flow Rate 06/21/22 16:00 06/21/22 16:00 06/21/22 18:00 Temperature 36.2 C L Pulse Rate 86 81 88 Respiratory Rate 20 Blood Pressure 104/84 Pulse Oximetry
[2022-06-22 09:48] LABS: Basophils Percent Auto 0.1 % (0.2-1.2); Hematocrit 36.5 % (37.0-47.0); Hemoglobin 11.2 g/dL (12.0-15.0); Immature Granulocyte Absolute 0.13 K/mm3 (0.00-0.031); Immature Granulocyte Percent A 1.3 % (0-0.5); Lymphocytes Absolute Auto 0.71 K/mm3 (0.9-3.2); Lymphocytes Percent Auto 7.4 % (18.3-44.2); Mean Corpuscular HGB Conc 30.7 g/dl (32-36); Mean Corpuscular Hemoglobin 24.8 pg (26-34); Mean Corpuscular Volume 80.9 fl (80-100); Monocytes Absolute Auto 0.3 K/mm3 (0.1-0.6); Monocytes Percent Auto 2.9 % (2.6-8.5); Neutrophils Absolute Auto 8.5 K/mm3 (1.3-6.7); Neutrophils Percent Auto 88.3 % (45.5-73.1); Platelet Count Result 301 k/mm3 (150-375); Red Blood Count 4.51 M/mm3 (4.2-5.4); Red Cell Distribution Width 17.3 % (11.5-14.5); White Blood Count 9.7 K/mm3 (4.5-10.0)
[2022-06-22] MEDS: PANTOPRAZOLE 40 MG TABLET PO (10:00)
[2022-06-22] MEDS: OSELTAMIVIR PHOSPHATE 75 MG CAPSULE PO ×2 (10:00→20:29)
[2022-06-22 10:11] LABS: Anion Gap 8 mmol/L (8-16); Blood Urea Nitrogen 21 mg/dL (7-17); Calcium 8.8 mg/dL (8.4-10.2); Carbon Dioxide 27 mmol/L (22-30); Chloride 105 mmol/L (98-107); Estimated CRCL calculation 103 ml/min; Estimated Glomerular Filt Rate > 60; Glucose 141 mg/dL (65-110); Potassium 4.4 mmol/L (3.4-5.0); Sodium 140 mmol/L (137-145)
[2022-06-22] MEDS: ENOXAPARIN 40 MG/0.4 ML SYRINGE SUB-Q (17:06)
[2022-06-22] MEDS: hydrOXYzine HCL 25 MG TABLET PO (22:33)
[2022-06-23] VITALS (22 sets, daily range): BP systolic 141–195; BP diastolic 58–77; PULSE 61–84; RESP 16–20; TEMP 35.9–37; O2SAT 89–100
[2022-06-23] MEDS: ALBUTEROL SULFATE NEB 2.5 MG/3 ML INH INHALATION ×6 (00:18→23:59)
[2022-06-23] MEDS: IPRATROPIUM BR 0.02% INH SOLN 0.5 MG/2.5 ML VIAL INHALATION ×6 (00:18→23:59)
[2022-06-23] MEDS: methylPREDNISolone SOD SUCC 125 MG VIAL 60 MG IV PUSH (05:49)
[2022-06-23] MEDS: FLUTICASONE PROPIONATE 0.05% NA SPR 16 GM BTL (*BKC) 1 SPRAY NASAL ×2 (09:12→21:10)
[2022-06-23] MEDS: PHENYLEPHRINE 1% NA SPR (*BKC) 15 ML BTL 1 SPRAY NASAL (09:12)
[2022-06-23] MEDS: SERTRALINE HCL 50 MG TABLET PO (09:15)
[2022-06-23] MEDS: OSELTAMIVIR PHOSPHATE 75 MG CAPSULE PO ×2 (09:15→21:09)
[2022-06-23] MEDS: PANTOPRAZOLE 40 MG TABLET PO (09:15)
[2022-06-23] MEDS: FERROUS GLUCONATE 324 MG TABLET PO (09:16)
[2022-06-23] MEDS: LORATADINE 10 MG TABLET PO (09:16)
[2022-06-23] MEDS: predniSONE 20 MG TABLET 60 MG PO (09:17)
[2022-06-23] MEDS: allopurinoL 100 MG TABLET PO (09:42)
--- NOTE | 2022-06-23 12:23 | PM.IMPN ---
Progress Note: A&P Assessment and Plan (1) Shortness of breath: Code(s): R06.02 - Shortness of breath Status: Acute Assessment and Plan: BNP 111, so mildly elevated. Having URI symptoms. Had improvement after initial treatment in the emergency department with duoneb and steroids. No hypoxia documented. Influenza A positive. CTA chest with no PE but with right upper lobe ground glass opacity suggestive of pneumonia/infectious process versus other inflammatory conditions. Echo EF 60-65% with grade I diastolic dysfunction. Clinically improved on 4LNC during rounds. -Ceftriaxone & azithromycin -Methylprednisolone 60mg q6h -Albuterol-ipratropium neb q4h -Continue oseltamivir -Wean oxygen as tolerated -06/23 discontinue methylprednisolone and prednisone started (2) Influenza: Code(s): J11.1 - Influenza due to unidentified influenza virus with other respiratory manifestations Status: Acute Assessment and Plan: Continue oseltamivir 75 mg bid (3) Acute asthma exacerbation: Code(s): J45.901 - Unspecified asthma with (acute) exacerbation Status: Acute Assessment and Plan: Appears to be having an acute asthma exacerbation likely due to respiratory infection. - Prednisone -Albuterol-ipratropium neb q4h (4) Microcytic anemia: Code(s): D50.9 - Iron deficiency anemia, unspecified Status: Acute Assessment and Plan: No evidence of bleeding at this time. Studies c/w with VENANCIO. -Ferrous gluconate every other day (5) Psoriasis: Code(s): L40.9 - Psoriasis, unspecified Status: Acute Assessment and Plan: Recently diagnosed and denies use of biologic agents. Currently being treated with topical creams. The steroids she is receiving for the asthma exacerbation should help this as well, so will hold topical creams for now. (6) Gout: Qualifiers: Chronicity: acute Gout etiology: unspecified cause Gout site: foot Laterality: left Qualified Code(s): M10.9 - Gout, unspecified Code(s): M10.9 - Gout, unspecified Status: Acute Assessment and Plan: Continue home allopurinol. (7) Anxiety: Code(s): F41.9 - Anxiety disorder, unspecified Status: Acute Assessment and Plan: Reports taking sertraline 50 mg po daily. Was given a dose of hyxdroxizine x 1 in ED, which worked well. -Continue sertraline -Hydroxyzine PRN Plan Enoxaparin prophylaxis Mom or is contact/decision maker GI prophylaxis indicated due to steroid dose Subjective Date/time seen: 06/23/22 12:23 Interval history: still with dry cough dry mouth. Gums tingling a bit. Was on both IV and p.o. steroids this morning. still with some wheezing. Shortness of breath with exertion. Denied chest pain. Tolerating diet. No GI or complaints. No abnormal bleeding. No focal weakness. No dizziness. Review of Systems Review of Systems: All systems reviewed & are unremarkable except as noted in HPI and below Exam Narrative: GENERAL: NAD, cooperative HEENT: Normocephalic, atraumatic, anicteric, nares clear, oropharynx moist and clear, dentition normal NECK: Supple CV: Normal S1, S2, RRR, No MRG RESP: Normal effort. Slight anterior coarseness. Upper lungs with coarse breath sounds posteriorly. Posterior lower lungs with an inspiratory wheeze and rhonchi. EXTREMITIES: Warm and well perfused, no clubbing, cyanosis, or edema. SKIN: warm, dry and intact. NEURO: CN II-XII grossly intact. Objective Data Vital Signs Vital Signs: Vital Signs - 24 hr 06/22/22 14:00 06/22/22 16:00 06/22/22 16:40 Temperature 97.3 F L Pulse Rate 82 66 69 Respiratory Rate 16 18 Blood Pressure 166/59 H Pulse Oximetry 95 94 Oxygen Delivery Nasal Cannula Oxygen Flow Rate 2 06/22/22 16:40 06/22/22 16:55 06/22/22 16:00 Temperature Pulse Rate 69 71 Respiratory Rate 18 18
[2022-06-23] MEDS: ENOXAPARIN 40 MG/0.4 ML SYRINGE SUB-Q (16:26)
--- NOTE | 2022-06-23 17:44 | PC.NURSE ---
This patient, Erin Davis, was transferred to [[id number] ] on 06/23/22 at 1744. Personal belongings sent with patient. Appropriate documentation sent with patient.
[2022-06-23] MEDS: ACETAMINOPHEN 325 MG TABLET 650 MG PO (21:09)
[2022-06-24] VITALS (8 sets, daily range): PULSE 62–79; RESP 16–18; O2SAT 95
[2022-06-24] MEDS: ALBUTEROL SULFATE NEB 2.5 MG/3 ML INH INHALATION ×3 (05:13→12:07)
[2022-06-24] MEDS: IPRATROPIUM BR 0.02% INH SOLN 0.5 MG/2.5 ML VIAL INHALATION ×3 (05:13→12:07)
[2022-06-24 07:20] LABS: Anion Gap 4 mmol/L (8-16); Blood Urea Nitrogen 25 mg/dL (7-17); Calcium 8.1 mg/dL (8.4-10.2); Carbon Dioxide 30 mmol/L (22-30); Chloride 103 mmol/L (98-107); Estimated CRCL calculation 81 ml/min; Estimated Glomerular Filt Rate > 60; Glucose 98 mg/dL (65-110); Potassium 3.3 mmol/L (3.4-5.0); Sodium 137 mmol/L (137-145)
[2022-06-24] MEDS: POTASSIUM CHLORIDE 20 MEQ PACKET (FOR LIQUID) 40 MEQ PO (08:22)
[2022-06-24] MEDS: FLUTICASONE PROPIONATE 0.05% NA SPR 16 GM BTL (*BKC) 1 SPRAY NASAL (08:22)
[2022-06-24] MEDS: OSELTAMIVIR PHOSPHATE 75 MG CAPSULE PO (08:23)
[2022-06-24] MEDS: allopurinoL 100 MG TABLET PO (08:23)
[2022-06-24] MEDS: predniSONE 20 MG TABLET 60 MG PO (08:23)
[2022-06-24] MEDS: SERTRALINE HCL 50 MG TABLET PO (08:23)
[2022-06-24] MEDS: LORATADINE 10 MG TABLET PO (08:23)
[2022-06-24] MEDS: PANTOPRAZOLE 40 MG TABLET PO (08:23)
--- NOTE | 2022-06-24 12:39 | PM.DS ---
DS: Admitting Diagnosis Discharge Date June 24, 2022 Admitting Diagnosis asthma DS: Discharge Diagnosis Discharge Diagnosis (1) Shortness of breath: Code(s): R06.02 - Shortness of breath Status: Acute Assessment and Plan: BNP 111, so mildly elevated. Having URI symptoms. Had improvement after initial treatment in the emergency department with duoneb and steroids. No hypoxia documented. Influenza A positive. CTA chest with no PE but with right upper lobe ground glass opacity suggestive of pneumonia/infectious process versus other inflammatory conditions. Echo EF 60-65% with grade I diastolic dysfunction. Clinically improved on 4LNC during rounds. -Ceftriaxone & azithromycin -Methylprednisolone 60mg q6h -Albuterol-ipratropium neb q4h -Continue oseltamivir -Wean oxygen as tolerated -06/23 discontinue methylprednisolone and prednisone started (2) Influenza: Code(s): J11.1 - Influenza due to unidentified influenza virus with other respiratory manifestations Status: Acute Assessment and Plan: Continue oseltamivir 75 mg bid (3) Acute asthma exacerbation: Code(s): J45.901 - Unspecified asthma with (acute) exacerbation Status: Acute Assessment and Plan: Appears to be having an acute asthma exacerbation likely due to respiratory infection. - Prednisone -Albuterol-ipratropium neb q4h (4) Microcytic anemia: Code(s): D50.9 - Iron deficiency anemia, unspecified Status: Acute Assessment and Plan: No evidence of bleeding at this time. Studies c/w with VENANCIO. -Ferrous gluconate every other day (5) Psoriasis: Code(s): L40.9 - Psoriasis, unspecified Status: Acute Assessment and Plan: Recently diagnosed and denies use of biologic agents. Currently being treated with topical creams. The steroids she is receiving for the asthma exacerbation should help this as well, so will hold topical creams for now. (6) Gout: Qualifiers: Chronicity: acute Gout etiology: unspecified cause Gout site: foot Laterality: left Qualified Code(s): M10.9 - Gout, unspecified Code(s): M10.9 - Gout, unspecified Status: Acute Assessment and Plan: Continue home allopurinol. (7) Anxiety: Code(s): F41.9 - Anxiety disorder, unspecified Status: Acute Assessment and Plan: Reports taking sertraline 50 mg po daily. Was given a dose of hyxdroxizine x 1 in ED, which worked well. -Continue sertraline -Hydroxyzine PRN Plan Enoxaparin prophylaxis Mom or is contact/decision maker GI prophylaxis indicated due to steroid dose DS: Summary Hospital Course Hospital Course: patient is a 51-year-old female came in with respiratory complications. She was found to have asthma exacerbation and probable pneumonia. She was started on IV antibiotics Solu-Medrol and inhalers and did exceptionally well. Patient can be discharged home. Will refill her home inhalers and also she will be sent home on Omnicef and also sent home on prednisone. Time Spent with Patient Time attestation: Total time spent providing and/or coordinating discharge services: Exam Narrative: GENERAL: NAD, cooperative HEENT: Normocephalic, atraumatic, anicteric, nares clear, oropharynx moist and clear, dentition normal NECK: Supple CV: Normal S1, S2, RRR, No MRG RESP: Normal effort. Slight anterior coarseness. Upper lungs with coarse breath sounds posteriorly. Posterior lower lungs with an inspiratory wheeze and rhonchi. EXTREMITIES: Warm and well perfused, no clubbing, cyanosis, or edema. SKIN: warm, dry and intact. NEURO: CN II-XII grossly intact. DS: Data Data Completed and Pending Labs on day of discharge: Labs from last 24 hours 06/24/22 06:51 Sodium 137 Potassium 3.3 L Chloride 103 Carbon Dioxide 30 Anion Gap 4 L BUN 25 H Creatinine 0.90 Estim Creat Clear C
[2022-07-02 08:41] LABS: Expiratory Pressure 5 cmH2O; Inspiratory Pressure 15 cmH2O
== END 2022-06-24 13:30 | disposition home or self-care (01) | DRG 194 ==
LOC: ANHED 06-20 00:01 → ANHIMU 06-20 03:41 → ANH3MEDSUR 06-23 17:27
PROVIDERS: Family Medicine; Internal Medicine; Admitting Provider Internal Medicine; Emergency Provider Emergency Medicine; PCP Internal Medicine; Visit Provider Chiropractor
DX: J10.00 Influenza due to other identified influenza virus with unspecified type of pneumonia (principal); J45.901 Unspecified asthma with (acute) exacerbation; M87.9 Osteonecrosis, unspecified; I10 Essential (primary) hypertension; D50.9 Iron deficiency anemia, unspecified; E66.01 Morbid (severe) obesity due to excess calories; L40.9 Psoriasis, unspecified; M13.0 Polyarthritis, unspecified; M10.9 Gout, unspecified; G47.19 Other hypersomnia; F41.9 Anxiety disorder, unspecified; Z20.822 Contact with and (suspected) exposure to COVID-19; Z87.891 Personal history of nicotine dependence
CPT/HCPCS: 36415; 36600; 71045; 71275; 80048; 80053; 82375; 82728; 82805; 83036; 83050; 83540; 83550; 83735; 83880; 84466; 85025; 86160; 86803; 87637; 93005; 93306; 94002; 94003; 94640; 94762; 96365; 96374; 96375; 99285; A9270; G0378; J0456; J0696; J1650; J2060; J2930; J3475; J7030; J7512; Q9967

== ENCOUNTER → 2023-03-25 08:33 | Outpatient (CLI) | payer OTHER, SELFPAY ==
--- NOTE | ~2023-03-25 | XR_ITS ---
Clinical Indication: Shortness of breath PA and lateral views of the chest: Comparison: 06/19/2022 Findings: The lungs are clear, without evidence of focal consolidation or pleural effusion. Cardiome diastinal silhouette is within normal limits. Bones and soft tissues are unremarkable. Impression: Normal chest. Reviewed, dictated and finalized at location . Impression: Normal chest.
== END ==
PROVIDERS: PCP Internal Medicine; Visit Provider Clinical Nurse Specialist
DX: R06.02 Shortness of breath (principal); R05.9 Cough, unspecified
CPT/HCPCS: 71046

== ENCOUNTER 2023-06-22 11:10 | Outpatient (CLI) | payer OTHER, SELFPAY ==
[2023-06-22 11:27] LABS: Basophils Percent Auto 0.3 % (0.2-1.2); Eosinophils Absolute Auto 0.3 K/mm3 (0-0.3); Eosinophils Percent Auto 3.9 % (0-4.4); Hematocrit 38.8 % (37.0-47.0); Immature Granulocyte Absolute 0.06 K/mm3 (0.00-0.031); Immature Granulocyte Percent A 0.7 % (0-0.5); Lymphocytes Absolute Auto 1.89 K/mm3 (0.9-3.2); Lymphocytes Percent Auto 21.9 % (18.3-44.2); Mean Corpuscular HGB Conc 30.9 g/dl (32-36); Mean Corpuscular Hemoglobin 24.9 pg (26-34); Mean Corpuscular Volume 80.7 fl (80-100); Mean Platelet Volume 9.5 fl (7.4-10.4); Monocytes Absolute Auto 0.5 K/mm3 (0.1-0.6); Monocytes Percent Auto 5.2 % (2.6-8.5); Neutrophils Absolute Auto 5.9 K/mm3 (1.3-6.7); Platelet Count Result 314 k/mm3 (150-375); Red Blood Count 4.81 M/mm3 (4.2-5.4); Red Cell Distribution Width 15.6 % (11.5-14.5); White Blood Count 8.6 K/mm3 (4.5-10.0)
[2023-06-27 15:09] LABS: FSH 21.4 mIU/mL (***)
[2023-06-27 19:52] LABS: Estradiol, Ultrasensitive 23 pg/mL
== END 2023-06-22 11:11 | disposition home or self-care (01) ==
LOC: ANHLAB 11:11
PROVIDERS: PCP Internal Medicine; Visit Provider Obstetrics & Gynecology
DX: N92.0 Excessive and frequent menstruation with regular cycle (principal)
CPT/HCPCS: 36415; 82670; 83001; 85025

== ENCOUNTER 2023-07-09 15:08 | Outpatient (CLI) | payer OTHER, SELFPAY ==
[2023-07-13 01:53] LABS: CA-125 8 U/mL (<35)
== END 2023-07-09 15:09 | disposition home or self-care (01) ==
PROVIDERS: PCP Internal Medicine; Visit Provider Obstetrics & Gynecology
DX: N83.202 Unspecified ovarian cyst, left side (principal)
CPT/HCPCS: 36415; 86304

== ENCOUNTER 2023-07-15 07:57 | Outpatient (CLI) | payer OTHER, SELFPAY ==
[2023-07-15 08:18] LABS: Basophils Absolute Auto 0.1 K/mm3 (0.0-0.1); Basophils Percent Auto 0.3 % (0.2-1.2); Eosinophils Percent Auto 0.1 % (0-4.4); Hematocrit 39.5 % (37.0-47.0); Hemoglobin 11.9 g/dL (12.0-15.0); Immature Granulocyte Absolute 0.23 K/mm3 (0.00-0.031); Immature Granulocyte Percent A 1.5 % (0-0.5); Lymphocytes Absolute Auto 2.42 K/mm3 (0.9-3.2); Lymphocytes Percent Auto 16.2 % (18.3-44.2); Mean Corpuscular HGB Conc 30.1 g/dl (32-36); Mean Corpuscular Hemoglobin 24.5 pg (26-34); Mean Corpuscular Volume 81.4 fl (80-100); Mean Platelet Volume 9.9 fl (7.4-10.4); Monocytes Absolute Auto 0.7 K/mm3 (0.1-0.6); Monocytes Percent Auto 4.4 % (2.6-8.5); Neutrophils Absolute Auto 11.6 K/mm3 (1.3-6.7); Neutrophils Percent Auto 77.5 % (45.5-73.1); Platelet Count Result 324 k/mm3 (150-375); Red Blood Count 4.85 M/mm3 (4.2-5.4); Red Cell Distribution Width 14.7 % (11.5-14.5); White Blood Count 14.9 K/mm3 (4.5-10.0)
[2023-07-15 08:20] LABS: Alanine Aminotransferase 22 U/L (6-35); Alkaline Phosphatase 100 U/L (38-126); Anion Gap 9 mmol/L (8-16); Aspartate Amino Transferase 22 U/L (14-36); Bilirubin,Total 0.3 mg/dL (0.2-1.3); Blood Urea Nitrogen 21 mg/dL (7-17); Calcium 9.1 mg/dL (8.4-10.2); Carbon Dioxide 29 mmol/L (22-30); Chloride 104 mmol/L (98-107); Cholesterol 204 mg/dL (0-200); Estimated Glomerular Filt Rate > 60; Glucose 98 mg/dL (65-110); HDL Direct 62 mg/dL; Sodium 142 mmol/L (137-145); Triglycerides 96 mg/dL (<150)
[2023-07-15 08:32] LABS: LDL Cholesterol Direct 108 mg/dL
[2023-07-15 08:55] LABS: Vitamin D 25 Hydroxy 22.3 ng/mL
[2023-07-15 11:26] LABS: Iron 46 ug/dL (37-170)
[2023-07-15 11:37] LABS: Percent Iron Saturation 15 % (20-50)
== END 2023-07-15 07:58 | disposition home or self-care (01) ==
LOC: ANHLAB 07:58
PROVIDERS: PCP Internal Medicine; Visit Provider Clinical Nurse Specialist
DX: D64.9 Anemia, unspecified (principal); I10 Essential (primary) hypertension; E55.9 Vitamin D deficiency, unspecified; Z13.228 Encounter for screening for other metabolic disorders
CPT/HCPCS: 36415; 80053; 80061; 82306; 82728; 83540; 83550; 84443; 85025

== ENCOUNTER 2023-07-29 09:53 | Outpatient (CLI) | payer OTHER, SELFPAY ==
--- NOTE | 2023-07-29 10:02 | EST_ITS ---
Patient Info Name: Erin Davis Age: 52 years : 1970 Gender: Female Ht: 62 in Wt: 290 lbs BSA: 2.49 m2 HR: 86 bpm BP: 162 / 67 mmHg Heart Rhythm: Sinus Rhythm Exam Date: 07/29/2023 10:15 AM Exam Location: Echo Lab Patient Status: Outpatient Admit Date: 07/29/2023 Staff Ordering Physician: Arlin Chan Orthopedic Rn: Arabella Khan RDCS Attending Provider: DR. GOLD Referring Physician: Dustin LEAL; Exercise Technologist: Arabella Khan RDCS Exercise Physician: Den Gold DO Exam Type: CA stress echo Study Info Indications R07.9 - Chest pain, unspecified Treadmill exercise stress echocardiogram is performed. Summary 1. 1. Negative Low exercise stress test for ischemic ST changes by ECG criteria. 2. 2. Reduced functional capacity, achieving 6.8 METs of workload. 3. 3. Baseline hypertension with hypertensive response to exercise. 4. 4. Appropriate HR response to exercise. 5. 5. Appropriate HR recovery at 1 minute post exercise. 6. 6. Negative stress echocardiogram for ischemia by wall motion analysis. 7. 7. Patient informed of the above results. Stress Echo Findings Left Ventricle Appropriate increase in LV endocardial thickening with systole. Appropriate augmentation of contractility with systole. No wall motion abnormality. Left Ventricle Normal LV systolic function, no wall motion abnormality. Protocol: Low Stress ECG Details Stage: REST Duration (min): 4 min : 51 sec Speed (mph): 0.0 Grade (%): 0 HR (bpm): 86 SBP (mmHg): 162 DBP (mmHg): 67 METS: --- Stage: REST Duration (min): 10 min : 37 sec Speed (mph): 0.0 Grade (%): 0 HR (bpm): 91 SBP (mmHg): 162 DBP (mmHg): 67 METS: --- Stage: REST Duration (min): 10 min : 51 sec Speed (mph): 0.0 Grade (%): 0 HR (bpm): 87 SBP (mmHg): 162 DBP (mmHg): 67 METS: --- Stage: REST Duration (min): 11 min : 10 sec Speed (mph): 0.0 Grade (%): 0 HR (bpm): 85 SBP (mmHg): 162 DBP (mmHg): 67 METS: --- Stage: REST Duration (min): 11 min : 31 sec Speed (mph): 0.0 Grade (%): 0 HR (bpm): 86 SBP (mmHg): 162 DBP (mmHg): 67 METS: --- Stage: STAGE 1 Duration (min): 1 min : 0 sec Speed (mph): 1.7 Grade (%): 10 HR (bpm): --- SBP (mmHg): 162 DBP (mmHg): 67 METS: --- Stage: STAGE 1 Duration (min): 2 min : 0 sec Speed (mph): 1.7 Grade (%): 10 HR (bpm): 126 SBP (mmHg): 162 DBP (mmHg): 67 METS: --- Stage: STAGE 1 Duration (min): 3 min : 0 sec Speed (mph): 1.7 Grade (%): 10 HR (bpm): 131 SBP (mmHg): 168 DBP (mmHg): 77 METS: --- Stage: STAGE 2 Duration (min): 1 min : 0 sec Speed (mph): 2.5 Grade (%): 12 HR (bpm): 138 SBP (mmHg): 168 DBP (mmHg): 77 METS: --- Stage: STAGE 2 Duration (min): 1 min : 14 sec Speed (mph): 0.0 Grade (%): 0 HR (bpm): 140 SBP (mmHg): 168 DBP (mmHg): 77 METS: --- Stage: RECOVERY Duration (min): 0 min : 46 sec Speed (mph): 0.0 Grade (%): 0 HR (bpm): 134
[2023-07-29 10:14] LABS: Basophils Percent Auto 0.3 % (0.2-1.2); Eosinophils Absolute Auto 0.1 K/mm3 (0-0.3); Eosinophils Percent Auto 1.9 % (0-4.4); Hematocrit 38.6 % (37.0-47.0); Hemoglobin 11.9 g/dL (12.0-15.0); Immature Granulocyte Absolute 0.02 K/mm3 (0.00-0.031); Immature Granulocyte Percent A 0.3 % (0-0.5); Lymphocytes Absolute Auto 1.64 K/mm3 (0.9-3.2); Mean Corpuscular HGB Conc 30.8 g/dl (32-36); Mean Corpuscular Hemoglobin 24.7 pg (26-34); Mean Corpuscular Volume 80.2 fl (80-100); Mean Platelet Volume 9.7 fl (7.4-10.4); Monocytes Absolute Auto 0.4 K/mm3 (0.1-0.6); Monocytes Percent Auto 5.1 % (2.6-8.5); Neutrophils Absolute Auto 5.3 K/mm3 (1.3-6.7); Neutrophils Percent Auto 70.4 % (45.5-73.1); Platelet Count Result 288 k/mm3 (150-375); Red Blood Count 4.81 M/mm3 (4.2-5.4); Red Cell Distribution Width 15.2 % (11.5-14.5); White Blood Count 7.5 K/mm3 (4.5-10.0)
== END 2023-07-29 09:54 | disposition home or self-care (01) ==
LOC: ANHCARD 09:55
PROVIDERS: PCP Internal Medicine; Visit Provider Clinical Nurse Specialist
DX: R07.9 Chest pain, unspecified (principal); D64.9 Anemia, unspecified; I10 Essential (primary) hypertension; R06.02 Shortness of breath
CPT/HCPCS: 36415; 85025; 93351

== ENCOUNTER 2023-09-02 08:03 | Outpatient (CLI) | payer OTHER, SELFPAY | END 2023-09-02 08:04 | disposition home or self-care (01) | LOC: ANHSURGERY 08:06 | PROVIDERS: PCP Internal Medicine; Visit Provider Obstetrics & Gynecology | DX: N83.202 Unspecified ovarian cyst, left side (principal); Z01.818 Encounter for other preprocedural examination | CPT/HCPCS: 36415; 86850; 86900; 86901 ==

== ENCOUNTER 2023-09-05 00:15 | Day surgery (SDC) | payer OTHER, SELFPAY ==
[2023-08-27 15:55] VITALS: BMI 54.0
--- NOTE | 2023-08-27 16:03 | PC.NURSE ---
Report to the Outpatient Waiting Room, entrance under the green pavilion located off [facility], at time 6:00 on date 09/05/23. Planned Procedure Time: 7:30. Time changes happen often and if your time is changed the preop area will call you the afternoon before. - You and your visitor will be asked to self-screen and do not enter if you have any COVID symptoms. - A mask is optional within the hospital at this time. Patients may have clear liquids (water, carbonated beverages, clear teas, apple juice) until 3 hours prior to surgery (4:30) with a maximum of 20 ounces. - No food from midnight until time of surgery Take the following medications with a SIP of water the morning of surgery: INHALER DO NOT STOP ANY OF YOUR OTHER PRESCRIPTION MEDICATIONS PRIOR TO SURGERY ?EXCEPT THE FOLLOWING Medications to discontinue per physician: VITAMINS/SUPPLEMENTS Date to take last dose: 09/01/23 Please no make-up, nail mauritian, hairspray, perfume, deodorant, or body powder the day of surgery. No jewelry (including any body piercings) or valuables the day of surgery, leave them at home. Please take a shower or bath the night before, or the morning of, surgery with an antibacterial soap. Wear comfortable, loose fitting clothing. - Jewelry must be removed prior to entering the operating room. Rings and piercings that are not removed may be cut off. - The hospital will not accept responsibility for valuables. - Please leave all valuables, including medications, at home the day of surgery. If you are going home after surgery, a licensed flatbed truck driver must drive you home. - NO public transportation without another adult if you receive anesthesia. - We recommend that an adult stay with you for 24 hours following discharge. - We also recommend that you do not drive, make important decision, drink alcoholic beverages, or take any drugs that were not prescribed by your health care provider for at least 24 hours after your discharge time. Follow any additional instructions given to you from your surgeon. If you or anyone in your household have experienced Covid symptoms in the past week, please notify your surgeon or the nurse liaison at the phone number below for possible testing. Telephone instructions given to PT - KAUSHAL DRUMMOND and asked if any additional questions and then verbalized understanding. Patient advised to call surgeon office or pre surgery nurse liaison [phone] if any additional questions.
--- NOTE | 2023-09-03 14:32 | PM.IMHP ---
H&P: HPI History of Present Illness Date/Time: 09/03/23 14:32 52-year-old female presents for removal of ovary. She has had a persistent 6x4 and 2x2 left adnexal mass which has not changed significantly after medical treatment, CA 125 was normal at 8. She has had no pain, the initial evaluation for was for irregular bleeding and the ultrasound showed no significant abnormalities there and this has since resolved. Have discussed continued expectant management but at this point patient strongly desires to have ovary removed. Chief Complaint: Left adnexal mass Review of Systems Review of Systems: All systems reviewed & are unremarkable except as noted in HPI and below PMFSH Past Medical History Medical History Abscess Acute asthma exacerbation Acute bronchitis Advice given about COVID-19 virus infection Ankle effusion Anxiety Asthma COVID-19 Daytime sleepiness Educated about COVID-19 virus infection Foot pain Gout Hypertension Influenza Irregular bleeding Joint effusion-lower leg Left ankle pain Left ovarian cyst Lower extremity surgery planned Right lower extremity surgery for infected tattoo and skin graft 2011 Morbid obesity due to excess calories Obesity Osteonecrosis Otalgia of both ears Other osteonecrosis, left ankle Pneumonia Polyarthritis Psoriasis Screening for lipid disorders Surgical History Surgical History History of surgery on lower extremity Family History Family History Mother Family history of cardiovascular disease Thyroid disease Heart disease Father Patient's father is in good health Sibling Diabetes mellitus Sibling Type 1 diabetes Kelly's disease Grandparent Heart disease Carcinoma of colon Lung cancer Social History Social History Social History: Caffeine-daily Smoking packs per day: 1 Smoking cigarettes per day: 20.0 Years smoked: 27 Smoking pack-years: 27.00 Smoking status: Former smoker Tobacco type: cigarettes Second hand tobacco smoke exposure: No Smoking end date: 07/08/07 Alcohol intake: never Alcohol use details: Pt drinks rarely. Substance use: never Substance use type: does not use Other substance usage details: marijuana for sleep Last use: 04/24/19 Lack of Transportation: No Lack of Food: Never True Current Housing: I Have Housing Concerned About Future Housing: No Difficulty Paying Gas/Electric Bills: No Difficulty Paying for Meds: No Currently Unemployed: No Education: High School Diploma/GED Difficulty w/ Childcare or Family Care: No Living arrangements: with family Additional living arrangements comments: Occupation/Education: occupation Additional occupation/education comments: Works in [employer] Gender identity (if verbalized by the patient): Female Sexual Orientation (if Verbalized by the Patient): Straight or Heterosexual Spiritual care concerns: No Meds Home Medications and Allergies Home Medications Medication Instructions Recorded Confirmed Type albuterol sulfate 90 mcg/actuation 2 inh inhalation Q4-6H PRN 04/17/21 08/27/23 Rx aerosol inhaler (ProAir HFA) shortness of breath or wheezing #18 grams cetirizine 10 mg tablet 10 mg PO DAILY 05/09/21 08/27/23 History fluticasone 100 mcg-salmeterol 50 1 inh inhalation BID 30 days #60 ea 06/24/22 08/27/23 Rx mcg/dose blistr powdr for inhalation (Advair Diskus) allopurinol 100 mg tablet 100 mg PO DAILY #90 tabs 07/26/23 08/27/23 Rx losartan 50 mg tablet 50 mg PO DAILY #90 tabs 07/29/23 08/27/23 Rx sertraline 50 mg tablet (Zoloft) 50 mg PO DAILY #90 tabs 07/29/23 08/27/23 Rx albuterol sulfate 2.5 mg/3 mL 2.5 mg (3 mL) inhalation Q4-6H PRN 08/14/23 08/27/23 Rx (0.083 %) solution for nebu
[2023-09-05] VITALS (11 sets, daily range): BP systolic 115–154; BP diastolic 58–89; PULSE 56–86; RESP 11–24; TEMP 36.2–36.7; O2SAT 93–100
--- NOTE | 2023-09-05 07:14 | WPDANESEPP ---
Anes - Eval Pre Procedure Procedure: Operation Date: 09/05/23 08:15 Proposed Procedures p Robotic Assisted Laparoscopic Left Salpingo-Oophorectomy - Eric Delgadillo MD Date/Time: 09/05/23 07:14 Surgeon: Leona Preop Diagnosis: left ovarian cyst Pre Op Diagnosis: left ovarian cyst Patient Data Age: 52 Gender: F Height: 1.57 m Weight: 134 kg Allergies Allergy/AdvReac Type Severity Reaction Status Date / Time No Known Allergies Allergy Verified 08/27/23 15:56 Home Medications Medication Instructions Recorded Confirmed Type albuterol sulfate 90 mcg/actuation 2 inh inhalation Q4-6H PRN 04/17/21 08/27/23 Rx aerosol inhaler (ProAir HFA) shortness of breath or wheezing #18 grams cetirizine 10 mg tablet 10 mg PO DAILY 05/09/21 08/27/23 History fluticasone 100 mcg-salmeterol 50 1 inh inhalation BID 30 days #60 ea 06/24/22 08/27/23 Rx mcg/dose blistr powdr for inhalation (Advair Diskus) allopurinol 100 mg tablet 100 mg PO DAILY #90 tabs 07/26/23 08/27/23 Rx losartan 50 mg tablet 50 mg PO DAILY #90 tabs 07/29/23 08/27/23 Rx sertraline 50 mg tablet (Zoloft) 50 mg PO DAILY #90 tabs 07/29/23 08/27/23 Rx albuterol sulfate 2.5 mg/3 mL 2.5 mg (3 mL) inhalation Q4-6H PRN 08/14/23 08/27/23 Rx (0.083 %) solution for nebulization bronchospasm #180 mL ascorbic acid (vitamin C) 500 mg 500 mg PO DAILY 08/27/23 08/27/23 History tablet (Vitamin C) cholecalciferol (vitamin D3) 25 25 mcg PO DAILY 08/27/23 08/27/23 History mcg (1,000 unit) tablet (Vitamin D3) ferrous sulfate 325 mg (65 mg 325 mg PO DAILY 08/27/23 08/27/23 History iron) tablet (Iron (ferrous sulfate)) HCG: negative Patient hx anesthesia problems: none Family hx anesthesia problems: none Results Review: All pre-operative results and documents have been reviewed as part of the pre-operative evaluation. PMFSH Past Medical History Medical History Abscess Acute asthma exacerbation Acute bronchitis Advice given about COVID-19 virus infection Ankle effusion Anxiety Asthma COVID-19 Daytime sleepiness Educated about COVID-19 virus infection Foot pain Gout Hypertension Influenza Irregular bleeding Joint effusion-lower leg Left ankle pain Left ovarian cyst Lower extremity surgery planned Right lower extremity surgery for infected tattoo and skin graft 2011 Morbid obesity due to excess calories Obesity Osteonecrosis Otalgia of both ears Other osteonecrosis, left ankle Pneumonia Polyarthritis Psoriasis Screening for lipid disorders Surgical History Surgical History History of surgery on lower extremity Family History Family History Mother Family history of cardiovascular disease Thyroid disease Heart disease Father Patient's father is in good health Sibling Diabetes mellitus Sibling Type 1 diabetes Kelly's disease Grandparent Heart disease Carcinoma of colon Lung cancer Social History Social History Social History: Caffeine-daily Smoking packs per day: 1 Smoking cigarettes per day: 20.0 Years smoked: 27 Smoking pack-years: 27.00 Smoking status: Former smoker Tobacco type: cigarettes Second hand tobacco smoke exposure: No Smoking end date: 07/08/07 Alcohol intake: never Alcohol use details: Pt drinks rarely. Substance use: never Substance use type: does not use Other substance usage details: marijuana for sleep Last use: 04/24/19 Lack of Transportation: No Lack of Food: Never True Current Housing: I Have Housing Concerned About Future Housing: No Difficulty Paying Gas/Electric Bills: No Difficulty Paying for Meds: No Currently Unemployed: No Education: High School Diploma/GED Difficulty w/ Childcare or Family Care:
--- NOTE | 2023-09-05 07:18 | WPDHPUPDATE1 ---
History and Physical Update Update Date/Time: 09/05/23 07:18 History and Physical has been reviewed, including an updated exam of the patient. There are NO changes in the patient's condition. Risks, benefits, and alternatives have been discussed and questions answered. Patient agrees to proceed with procedure.
[2023-09-05] MEDS: LACTATED RINGERS 1,000 ML 30 ML IV CONT ×2 (07:20→09:50)
[2023-09-05] MEDS: ACETAMINOPHEN 500 MG TABLET 1000 MG PO (07:20)
[2023-09-05] MEDS: KETOROLAC 15 MG/ML VIAL (*BKC) IV PUSH (07:20)
--- NOTE | 2023-09-05 07:41 | P.PNAN_ITS ---
Anes - Eval Final PreProcedure Day of Procedure 09/05/23 07:41 Patient weight: super morbidly obese Heart: regular rate and rhythm Lungs: clear to auscultation Airway: Mallampati scale class II Neurological: alert and oriented Last oral intake: >/= 8 hours ASA classification: III Emergent: no Anesthetic plan: proceed Anesthesia type and monitoring: general ETT and standard monitoring Results Review: All pre-operative results and documents have been reviewed as part of the pre- operative evaluation. Informed Consent: The patient's anesthetic plan and its attendant risks and benefits were discus sed with the patient/family/POA. Questions were solicited and answers provided to the satisfaction of the patient/family/POA.
--- NOTE | 2023-09-05 09:56 | W.PM.PROC2 ---
Procedure Note - Detailed Date of Procedure 09/05/23 Pre-op Diagnosis left ovarian cyst Post-op Diagnosis Same Procedure Performed Robotic assisted left salpingo-oophorectomy Surgeon Eric Delgadillo MD Anesthesia General Findings Uterus and right tube no without abnormality. Left tube and ovary within large cysts which was adhered to the ovarian fossa Description of Procedure Patient prepped draped usual manner for this procedure. Cervical instruments were placed for uterine mobility throughout the case. Abdominal trocar sites were marked and trocars placed under direct visualization. Attached to the de [place] [employer] system, instruments placed, and surgeon moved to the console. Findings were noted as above and the ovary was sharply and bluntly dissected away from the cul-de-sac/ovarian fossa and infant of a pelvic ligament was readily identified cauterized and cut. Did appear to be endometrioma in this area once the ovary was freed from the pelvic floor. Portion of the tube was removed but do not feel the entirety of the tube was removed with the ovary. It did however appear normal without issue. The ovary was then placed in Endo-Catch bag and removed without difficulty. The area of surgery was irrigated and there was no bleeding. [place] arm was placed empirically. Gas was allowed to escape trocars removed and incisions approximated and 4-0 Monocryl. Patient was sent to recovery room in stable condition. Estimated Blood Loss 10 Drains No Packing No Pathology Yes Complications No immediate complications Condition Stable Disposition PACU [facility] Billing Surgery - Charge Forward: Surgery Billing
[2023-09-05] MEDS: fentaNYL CITRATE INJ (*CRX) 100 MCG/2 ML VIAL 25 MCG IV PUSH ×2 (10:18→10:20)
[2023-09-05] MEDS: oxyCODONE HCL (*CRX) 5 MG TAB IR PO (11:45)
== END 2023-09-05 12:40 | disposition home or self-care (01) ==
PROVIDERS: PCP Internal Medicine; Visit Provider Obstetrics & Gynecology
PROC: 8E0W4CZ Robotic Assisted Procedure of Trunk Region, Percutaneous Endoscopic Approach (ICD-10-PCS; CPT 49320; principal; 2023-09-05 08:15)
DX: D27.1 Benign neoplasm of left ovary (principal); N80.102 Endometriosis of left ovary, unspecified depth; I10 Essential (primary) hypertension; J45.909 Unspecified asthma, uncomplicated; F41.9 Anxiety disorder, unspecified; M10.9 Gout, unspecified; E66.01 Morbid (severe) obesity due to excess calories; Z68.43 Body mass index [BMI] 50.0-59.9, adult; Z79.51 Long term (current) use of inhaled steroids; Z87.891 Personal history of nicotine dependence; F12.90 Cannabis use, unspecified, uncomplicated
CPT/HCPCS: 58661; 36415; 86850; 86900; 86901; 88305; A9270; J1100; J1885; J2250; J2371; J2405; J2704; J3010; J7030; J7120

== ENCOUNTER 2024-04-01 09:15 | Outpatient (CLI) | payer OTHER, SELFPAY ==
[2024-04-01 14:28] LABS: Alanine Aminotransferase 14 U/L (6-35); Albumin Level 4.1 g/dL (3.5-5.1); Alkaline Phosphatase 95 U/L (38-126); Anion Gap 6 mmol/L (4-12); Aspartate Amino Transferase 31 U/L (14-36); Bilirubin,Total 0.3 mg/dL (0.2-1.3); Blood Urea Nitrogen 18 mg/dL (7-17); Calcium 8.7 mg/dL (8.4-10.2); Carbon Dioxide 29 mmol/L (22-30); Chloride 105 mmol/L (98-107); Estimated Glomerular Filt Rate 58; Glucose 102 mg/dL (65-110); Potassium 3.9 mmol/L (3.4-5.0); Sodium 140 mmol/L (137-145)
== END 2024-04-01 09:16 | disposition home or self-care (01) ==
LOC: ANHGOSHLAB 09:17
PROVIDERS: PCP Internal Medicine; Visit Provider Nurse Practitioner
DX: E66.01 Morbid (severe) obesity due to excess calories (principal)
CPT/HCPCS: 36415; 80053; 84443

== ENCOUNTER 2024-10-26 08:46 | Outpatient (CLI) | payer OTHER, SELFPAY ==
[2024-10-26 09:02] LABS: Basophils Percent Auto 0.3 % (0.2-1.2); Eosinophils Absolute Auto 0.3 K/mm3 (0-0.3); Eosinophils Percent Auto 3.7 % (0-4.4); Hematocrit 39.1 % (37.0-47.0); Hemoglobin 11.8 g/dL (12.0-15.0); Immature Granulocyte Absolute 0.03 K/mm3 (0.00-0.031); Immature Granulocyte Percent A 0.4 % (0-0.5); Lymphocytes Absolute Auto 1.68 K/mm3 (0.9-3.2); Lymphocytes Percent Auto 23.8 % (18.3-44.2); Mean Corpuscular HGB Conc 30.2 g/dl (32-36); Mean Corpuscular Hemoglobin 24.3 pg (26-34); Mean Corpuscular Volume 80.5 fl (80-100); Mean Platelet Volume 9.5 fl (7.4-10.4); Monocytes Absolute Auto 0.4 K/mm3 (0.1-0.6); Monocytes Percent Auto 5.1 % (2.6-8.5); Neutrophils Absolute Auto 4.7 K/mm3 (1.3-6.7); Neutrophils Percent Auto 66.7 % (45.5-73.1); Platelet Count Result 278 k/mm3 (150-375); Red Blood Count 4.86 M/mm3 (4.2-5.4); Red Cell Distribution Width 15.4 % (11.5-14.5); White Blood Count 7.1 K/mm3 (4.5-10.0)
[2024-10-26 09:11] LABS: Alanine Aminotransferase 16 U/L (6-35); Alkaline Phosphatase 106 U/L (38-126); Anion Gap 10 mmol/L (4-12); Aspartate Amino Transferase 21 U/L (14-36); Bilirubin,Total 0.3 mg/dL (0.2-1.3); Blood Urea Nitrogen 15 mg/dL (7-17); Calcium 8.7 mg/dL (8.4-10.2); Carbon Dioxide 28 mmol/L (22-30); Chloride 106 mmol/L (98-107); Cholesterol 164 mg/dL (0-200); Estimated Glomerular Filt Rate 59; Glucose 105 mg/dL (65-110); HDL Direct 52 mg/dL; Sodium 144 mmol/L (137-145); Triglycerides 82 mg/dL (<150)
[2024-10-26 09:13] LABS: Hemoglobin A1C 5.4 % (<5.7)
[2024-10-26 09:22] LABS: LDL Cholesterol Direct 81 mg/dL
[2024-10-26 10:00] LABS: Vitamin D 25 Hydroxy 16.6 ng/mL
== END 2024-10-26 08:47 | disposition home or self-care (01) ==
LOC: ANHLAB 08:48
PROVIDERS: PCP Nurse Practitioner; Visit Provider Nurse Practitioner
DX: I10 Essential (primary) hypertension (principal); E55.9 Vitamin D deficiency, unspecified; E66.01 Morbid (severe) obesity due to excess calories
CPT/HCPCS: 36415; 80053; 80061; 82306; 83036; 84443; 85025

== ENCOUNTER 2024-11-19 10:46 | Outpatient (CLI) | payer OTHER, SELFPAY ==
--- NOTE | ~2024-11-19 | MM_ITS ---
EXAMINATION: MM screening robert BI w akil HISTORY: Screening TECHNIQUE: Craniocaudal and mediolateral oblique 3-D tomosynthesis images were obtained and synthetic 2-D images were generated. CAD analysis was submitted and interpreted. COMPARISON: No prior mammogram is available for comparison at this institution. BREAST PARENCHYMAL COMPOSITION: Not dense: There are scattered areas of fibroglandular density. FINDINGS: There is a mass in the upper outer quadrant of the right breast, middle third. There are sc attered asymmetries of the left breast. There are no suspicious calcifications or architectural disto rtion. IMPRESSION: 1. Right breast mass, upper outer quadrant. Scattered left breast asymmetries. 2. Additional mammographic views and possible breast ultrasound are recommended. BI-RADS Category 0: Incomplete: Needs additional imaging evaluation. Reviewed, dictated and finalized at location A. IMPRESSION: 1. Right breast mass, upper outer quadrant. Scattered left breast asymmetries. 2. Additional mammographic views and possible breast ultrasound are recommended . BI-RADS Category 0: Incomplete: Needs additional imaging evaluation.
== END 2024-11-19 10:47 | disposition home or self-care (01) ==
LOC: MICIMG 10:46
PROVIDERS: PCP Nurse Practitioner; Visit Provider Nurse Practitioner
DX: Z12.31 Encounter for screening mammogram for malignant neoplasm of breast (principal); N63.11 Unspecified lump in the right breast, upper outer quadrant
CPT/HCPCS: 77063; 77067

== ENCOUNTER 2024-12-09 08:58 | Outpatient (CLI) | payer OTHER, SELFPAY ==
--- NOTE | ~2024-12-09 | MMUS_ITS ---
PROCEDURE: MM DIAGNOSTIC MAO BI W GILMER AND US BREAST BI LIMITED INDICATION: 54-year old female; BI-RADS 0, evaluate right breast mass and scattered left breast asymm etries. COMPARISON: 11/19/2024 TECHNIQUE: Digital breast tomosynthesis True lateral CC and MLO views of BILATERAL breasts were obta ined with computer-aided detection to assist in interpretation of the study. FINDINGS: There are scattered areas of fibroglandular density. Circumscribed mass persists in the superior lateral right breast. The scattered asymmetries in the left breast effaces on spot compression views compatible with superi mposition of fibroglandular tissue. BILATERAL BREAST ULTRASOUND FINDINGS: Right breast: A 1.1 x 0.4 x 1.9 cm bilobed hypoechoic circumscribed mass at 10:00 location 8 cm from the nipple in the RIGHT breast correlates to the mammographic finding. Left breast: There is a 0.5 x 0.2 x 0.3 cm hypoechoic lesion seen at 12:00, 7 cm from the nipple. The re are no other sonographic correlates to the mammographic finding. IMPRESSION: 1. 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 LEFT BREAST PROBABLY BENIGN COMPLICATED CYST. RECOMMENDATION: 6 MONTH FOLLOW-UP BILATERAL BREAST ULTRASOUND AND BILATERAL DIAGNOSTIC MAMMOGRAPHY. BI-RADS 3, PROBABLY BENIGN Reviewed, dictated and finalized at location B. IMPRESSION: 1. 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 LEFT BREAST PROBABLY BENIGN COMPLICATED CYST. RECOMMENDATION: 6 MONTH FOLLOW-UP BILATERAL BREAST ULTRASOUND AND BILATERAL DIAGNOSTIC MAMMOGRA PHY. BI-RADS 3, PROBABLY BENIGN
== END 2024-12-09 08:59 | disposition home or self-care (01) ==
PROVIDERS: PCP Obstetrics & Gynecology; Visit Provider Nurse Practitioner
DX: R92.8 Other abnormal and inconclusive findings on diagnostic imaging of breast (principal); N64.89 Other specified disorders of breast; N63.0 Unspecified lump in unspecified breast
CPT/HCPCS: 76642; 77062; 77066; G0279

== ENCOUNTER 2025-04-28 12:32 | Outpatient (CLI) | payer OTHER, SELFPAY ==
[2025-04-28 15:12] LABS: Hematocrit 39.4 % (37.0-47.0); Hemoglobin 12.2 g/dL (12.0-15.0); Immature Granulocyte Percent A 0.3 % (0-0.5); Lymphocytes Absolute Auto 1.91 K/mm3 (0.9-3.2); Mean Corpuscular HGB Conc 31.0 g/dl (32-36); Mean Corpuscular Hemoglobin 24.7 pg (26-34); Mean Corpuscular Volume 79.9 fl (80-100); Nucleated Red Blood Cells Absolute Auto 0.000 K/mm3 (0.0-0.012); Nucleated Red Blood Cells Perc 0.0 % (0.0-0.2); Platelet Count Result 333 k/mm3 (150-375); Red Blood Count 4.93 M/mm3 (4.2-5.4); White Blood Count 9.4 K/mm3 (4.5-10.0)
[2025-04-28 15:56] LABS: Alanine Aminotransferase 23 U/L (6-35); Albumin Level 4.3 g/dL (3.5-5.1); Alkaline Phosphatase 106 U/L (38-126); Anion Gap 8 mmol/L (4-12); Aspartate Amino Transferase 35 U/L (14-36); Bilirubin,Total 0.3 mg/dL (0.2-1.3); Blood Urea Nitrogen 21 mg/dL (7-17); Calcium 9.5 mg/dL (8.4-10.2); Carbon Dioxide 28 mmol/L (22-30); Chloride 102 mmol/L (98-107); Estimated Glomerular Filt Rate > 60; Glucose 73 mg/dL (65-110); Potassium 4.5 mmol/L (3.4-5.0); Sodium 138 mmol/L (137-145); Total Protein 8.1 g/dL (6.3-8.2)
[2025-04-28 17:48] LABS: Hemoglobin A1C 4.9 % (<5.7)
== END 2025-04-28 12:33 | disposition home or self-care (01) ==
LOC: ANHGOSHLAB 12:32
PROVIDERS: PCP Nurse Practitioner; Visit Provider Nurse Practitioner
DX: I10 Essential (primary) hypertension (principal); E66.01 Morbid (severe) obesity due to excess calories
CPT/HCPCS: 36415; 80053; 83036; 85025